=== PATIENT | male | born 1940 | race Hispanic/Latino ===

== ENCOUNTER 2017-06-11 16:12 | Inpatient (IN) | payer MEDICARE, OTHER ==
[2017-06-11 16:53] VITALS: BMI 22.7
--- NOTE | 2017-06-11 16:54 | ED PDOC ---
Arrival/HPI - General Historian: Patient, Family (daughter) <Ashwin Harley - Last Filed: 06/11/17 19:04> <Neville Wright - Last Filed: 06/11/17 19:27> - General Time Seen by Provider: 06/11/17 16:14 - History of Present Illness Narrative History of Present Illness (Text): 06/11/17 16:46 Patient is a 77 year old male with a past medical history of glaucoma, hypertension, CVA and pinched nerve in his neck presenting to the emergency room with a complaint of frequent falls. He is accompanied by his daughter who helps him give the history. Patient had neck fusion surgery in 2017 and has been experiencing increased frequent falls ever since. Per the patient's daughter he has been having a worsening shuffling gait leading to more frequent falls. He denies any prodrome prior to falls. He had fallen yesterday and did not tell anyone. He also fell earlier today and landed on his left elbow causing him to bleed. Patient states he thinks he hit his head but he is not sure. He denies loss of consciousness. Daughter states that after his fall today , the patient was unable to stand up and walk. Patient is not sure why he can not walk anymore. He says he is not in any pain at this time. Denies lightheadedness, dizziness, fevers, chills, nausea, vomiting, diarrhea, constipation, chest pain, palpitations, abdominal pain, numbness, tingling, vision changes or headaches. (Ashwin Harley) Past Medical History - Provider Review Nursing Documentation Reviewed: Yes <Ashwin Harley - Last Filed: 06/11/17 19:04> Family/Social History - Physician Review Nursing Documentation Reviewed: Yes Family/Social History: Unknown Family HX <Ashwin Harley - Last Filed: 06/11/17 19:04> Allergies/Home Meds <Ashwin Harley - Last Filed: 06/11/17 19:04> <Neville Wright - Last Filed: 06/11/17 19:27> Allergies/Adverse Reactions: Allergies No Known Allergies Allergy (Verified 06/11/17 16:52) Home Medications: Home Meds Medication Instructions Recorded Confirmed Unobtainable 06/11/17 06/11/17 Review of Systems - Physician Review All systems were reviewed & negative as marked: Yes - Review of Systems Constitutional: Normal. absent: Fatigue, Fevers Eyes: Normal. absent: Vision Changes ENT: Normal. absent: Sore Throat, Rhinorrhea, Sinus Congestion Respiratory: Normal. absent: SOB, Cough, Sputum, Wheezing Cardiovascular: Normal. absent: Chest Pain, Palpitations, Edema, Calf Pain Gastrointestinal: Normal. absent: Abdominal Pain, Constipation, Diarrhea, Nausea, Vomiting Genitourinary Male: Normal. absent: Dysuria Musculoskeletal: Normal. absent: Back Pain Skin: Normal. absent: Rash Neurological: Other (frequent falls). absent: Headache, Dizziness Endocrine: Normal. absent: Diaphoresis Hemo/Lymphatic: Normal Psychiatric: Normal <Ashwin Harley - Last Filed: 06/11/17 19:04> Physical Exam Vital Signs Reviewed: Yes Temperature: Afebrile Blood Pressure: Normal Pulse: Tachycardic Respiratory Rate: Normal Appearance: Positive for: Well-Appearing, Non-Toxic, Comfortable Pain Distress: None Mental Status: No: Alert and Oriented X 3 (Knows self and place but thinks its april 1978) - Systems Exam Head: Present: Tenderness (posterior portion of right side of head), Swelling ( posterior portion of right side of head) Pupils: Present: PERRL Extroacular Muscles: Present: EOMI Conjunctiva: Present: Normal Mouth: Present: Moist Mucous Membranes Nose (External): Present: Atraumatic Nose (Internal): Present: Normal Inspection, No Active Bleeding, Moist Neck: Present: Normal Range of Motion. No: Meningeal Signs, MIDLINE TENDERNESS , Paraspinal Tenderness, JVD, Lymphadenopathy Respiratory/Chest: Present: Clear to Auscultation, Good Air Exchange. No: Respiratory Distress, Accessory Muscle Use Cardiovascular: Present: Regular Rate and Rhythm, Normal S1, S2, Tachycardic. No: Murmurs Abdomen: Present: Normal Bowel Sounds. No: Tenderness, Distention, Peritoneal Signs, Rebound, Guarding Back: Present: Normal Inspection. No: Midline Tenderness, Paraspinal Tenderness , Decubitus Ulcer Upper Extremity: Present: NORMAL PULSES, Tenderness (left elbow), Swelling ( left elbow), Other (abrasion over left elbow, currently bleeding). No: Cyanosis , Edema Lower Extremity: Present: Normal Inspection, NORMAL PULSES. No: Edema, CALF TENDERNESS Neurological: Present: GCS=15, CN II-XII Intact, Speech Normal Skin: Present: Warm, Dry, Abrasion (left elbow). No: Rashes Lymphatic: No: Cervical Adenopathy Psychiatric: Present: Alert, Normal Insight, Normal Concentration. No: Oriented x 3 (oriented to self and place but thinks it is april 1978) <Ashwin Harley - Last Filed: 06/11/17 19:04> Vital Signs Temp Pulse Resp BP Pulse Ox 06/11/17 17:42 102 H 18 121/68 95 06/11/17 16:18 98.3 F 113 H 18 124/73 95 Medical Decision Making Re-evaluation Time: 19:03 Reassessment Condition: Re-examined, Unchanged - Lab Interpretations I have reviewed the lab results: Yes - RAD Interpretation Talent Buyer: Radiologist - EKG Interpretation Interpreted by ED Physician: Yes Type: 12 lead EKG <Ashwin Harley - Last Filed: 06/11/17 19:04> <Neville Wright - Last Filed: 06/11/17 19:27> ED Course and Treatment: 06/11/17 17:[address], Left elbow x ray, labs will re-assess 06/11/17 19:03 Labs - unremarkable Head and C - Spine CT - unremarkable awaiting left elbow x-ray -results, prelim read - no fx Spoke with patient and daughter at bedside. Discussed the want to keep patient overnight for observation due to increasing frequency of falls. They agree. Call placed to Dr. Blackwell, awaiting call back. Patient states he has some shoulder pain, this is baseline pain for him from previous surgery - requesting ibuprofen 600mg, which he takes at home. He states he will refuse anything stronger. (Ashwin Harley) 06/11/17 19:26 Patient has had multiple falls and is at a high fall risk that could cause disability or . I recommend observation for evaluation of ataxia. Case was discussed with Dr. Blackwell who agrees to placed on medsurg for ataxia in observation. (Neville Wright) - Lab Interpretations Lab Results: 06/11/17 17:30 06/11/17 17:30 Lab Results 06/11/17 17:30: Sodium 139, Potassium 4.3, Chloride 102, Carbon Dioxide 25, Anion Gap 16, BUN 31 H, Creatinine 1.1, Est GFR ( Amer) > 60, Est GFR ( Non-Af Amer) > 60, Random Glucose 94, Calcium 9.7, Magnesium 2.1, Total Bilirubin 0.7, AST 30, ALT 20, Alkaline Phosphatase 91, Total Protein 7.6, Albumin 4.1, Globulin 3.5, Albumin/Globulin Ratio 1.2 06/11/17 17:30: WBC 9.4, RBC 4.00, Hgb 12.7 L, Hct 37.4 L, MCV 93.5, MCH 31.8, MCHC 34.0, RDW 12.8, Plt Count 239, MPV 10.2, Gran % 71.5 H, Lymph % (Auto) 18.2 L, [place] % (Auto) 9.5 H, Eos % (Auto) 0.7 L, Baso % (Auto) 0.1, Gran # 6.73 H, Lymph # (Auto) 1.7, [place] # (Auto) 0.9 H, Eos # (Auto) 0.1, Baso # (Auto) 0.01 - RAD Interpretation Narrative RAD Interpretations (Text): 06/11/17 18:[address] - No acute intracranial abnormalities. No significant findings to account for the clinical presentation. - Brain - No mass effect or edema. Area of old cortical infarction left frontal parietal region. Cortical atrophy, periventricular small vessel disease. Lacune or infarcts identified on the left Cervical Spine CT - No acute fracture or traumatic anterior listhesis. (Ashwin Harley) Radiology Orders: 06/11/17 16:54 HEAD W/O CONTRAST [CT] Stat ELBOW LEFT 3 VIEWS ROUTINE [RAD] Stat 06/11/17 16:56 CERVICAL SPINE W/O CONTRAST [CT] Stat - EKG Interpretation EKG Interpretation (Text): 06/11/17 17:08 Sinus Tachycardia @ 104bpm, normal axis, LVH - no previous EKG to compare to ( Ashwin Harley) - Medication Orders Current Medication Orders: Discontinued Medications Ibuprofen (Motrin Tab) 600 mg PO STAT STA Stop: 06/11/17 18:44 Last Admin: 06/11/17 18:48 Dose: 600 mg MAR Pain/Vitals Document 06/11/17 18:48 MS (Rec: 06/11/17 18:50 MS [id number]) Pain Reassessment Is This A Pain ReAssessment? No Sleep Is patient sleeping during reassessment? No Presence of Pain Presence of Pain Yes Pain Scale Used Pain Scale Used Numeric Location Pain Location Body Site Elbow Intensity 5 Scale Used Numeric Pain Behavior Grasping Site Facial Grimacing Disposition/Present on Arrival - Present on Arrival Any Indicators Present on Arrival: No History of DVT/PE: No History of Uncontrolled Diabetes: No Urinary Catheter: No History of Decub. Ulcer: No - Disposition Have Diagnosis and Disposition been Completed?: Yes Disposition Time: 19:03 <Ashwin Harley - Last Filed: 06/11/17 19:04> - Disposition Patient Plan: Observation <Neville Wright - Last Filed: 06/11/17 19:27> - Disposition Diagnosis: Ataxia Patient Problems: Current Active Problems Problem Status Onset Ataxia Acute Condition: GUARDED Referrals: Zafar Blackwell MD [Primary Care Provider] - Follow up with primary
[2017-06-11 17:47] LABS: BASO # 0.01 K/mm3 (0.0-2.0); BASO % 0.1 % (0.0-3.0); EOS # 0.1 (0.0-0.7); EOS % 0.7 % (1.5-5.0); GRAN # 6.73 (1.4-6.5); GRAN % 71.5 % (50.0-68.0); HEMOGLOBIN 12.7 g/dL (14.0-18.0); LYMPH # 1.7 (1.2-3.4); LYMPH % 18.2 % (22.0-35.0); MEAN CELL VOLUME 93.5 fl (80.0-105.0); MEAN CORPUSCULAR HEMOGLOBIN 31.8 pg (25.0-35.0); MEAN PLATELET VOLUME 10.2 fl (7.0-11.0); MONO # 0.9 (0.1-0.6); MONO % 9.5 % (1.0-6.0); RED CELL DISTRIBUTION WIDTH 12.8 % (11.5-14.5); WHITE BLOOD COUNT 9.4 10^3/ul (4.5-11.0)
[2017-06-11 17:58] LABS: BLOOD UREA NITROGEN 31 mg/dL (7-21); GFR AFRICAN-AMERICAN > 60; GFR NON-AFRICAN AMERICAN > 60
[2017-06-11 17:59] LABS: ALB/GLOB RATIO 1.2 (1.1-1.8); ALBUMIN 4.1 g/dL (3.0-4.8); ALT/SGPT 20 U/L (7-56); AST/SGOT 30 U/L (17-59); CALCIUM 9.7 mg/dL (8.4-10.5)
--- NOTE | 2017-06-11 18:09 | CT ---
PROCEDURE: CT HEAD WITHOUT CONTRAST. HISTORY: s/p fall, unsteady gait COMPARISON: None available. TECHNIQUE: Axial computed tomography images were obtained through the head/brain without intravenous contrast. Coronal and sagittal reconstructed images. Radiation dose: Total exam DLP = 886.40 mGy-cm. This CT exam was performed using one or more of the following dose reduction techniques: Automated exposure control, adjustment of the mA and/or kV according to patient size, and/or use of iterative reconstruction technique. FINDINGS: HEMORRHAGE: No intracranial hemorrhage. BRAIN: No mass effect or edema. Area of old cortical infarction left frontal parietal region. Cortical atrophy, periventricular small vessel disease. Lacune or infarcts identified on the left VENTRICLES: Unremarkable. No hydrocephalus. CALVARIUM: Unremarkable. PARANASAL SINUSES: Unremarkable as visualized. No significant inflammatory changes. MASTOID AIR CELLS: Unremarkable as visualized. No inflammatory changes. OTHER FINDINGS: None. IMPRESSION: No acute intracranial abnormalities. No significant findings to account for the clinical presentation.
--- NOTE | 2017-06-11 18:23 | CT ---
PROCEDURE: CT Cervical Spine without contrast HISTORY: s/p fall COMPARISON: None available. TECHNIQUE: Axial computed tomography images were obtained of the cervical spine without the use of intravenous contrast. Coronal and sagittal reformatted images were created and reviewed. Radiation dose: Total exam DLP = 563.78 mGy-cm. This CT exam was performed using one or more of the following dose reduction techniques: Automated exposure control, adjustment of the mA and/or kV according to patient size, and/or use of iterative reconstruction technique. FINDINGS: VERTEBRAE: There is straightening of the cervical spine with loss of normal cervical lordosis. There is no acute fracture or traumatic anterior listhesis. There is normal alignment of the cervical vertebral bodies. Status post extensive posterior spinal decompression and fixation with transpedicular screws and interconnecting rods. There is diffuse bone demineralization. The craniocervical junction is normal. The atlantoaxial joint is normal. DISCS/SPINAL CANAL/NEURAL FORAMINA: There is advanced multilevel degenerative disc disease with anterior osteophytes, reduced disc heights and multilevel facet arthropathy with variable degree of neural foraminal narrowing. PARASPINAL SOFT TISSUES: Unremarkable. OTHER FINDINGS: No apical pneumothorax. There is extensive left apical pleural parenchymal scarring and mild right apical pleural parenchymal scarring. IMPRESSION: No acute fracture or traumatic anterior listhesis.
--- NOTE | 2017-06-11 22:17 | CARD ---
APPROVED REPORT EKG Measurement Heart [id number] <Conclusion> Sinus tachycardia Otherwise normal ECG
--- NOTE | 2017-06-12 07:01 | RAD ---
PROCEDURE: Radiographs of the left elbow. HISTORY: s/p fall COMPARISON: No prior. FINDINGS: BONES: No acute fracture. Prominent trabecular pattern distal left humerus. Cortical thickening suggests Paget disease. JOINTS: Degenerative changes at the junction of the olecranon and medial epicondyles. SOFT TISSUES: Normal. JOINT EFFUSION: None. OTHER FINDINGS: None IMPRESSION: No acute findings related to/accounting for the clinical presentation.
[2017-06-12 07:30] LABS: BASO # 0.01 K/mm3 (0.0-2.0); BASO % 0.2 % (0.0-3.0); EOS # 0.2 (0.0-0.7); EOS % 3.5 % (1.5-5.0); GRAN # 3.54 (1.4-6.5); GRAN % 56.5 % (50.0-68.0); LYMPH # 1.8 (1.2-3.4); LYMPH % 29.3 % (22.0-35.0); MEAN CELL VOLUME 92.8 fl (80.0-105.0); MEAN CORPUSCULAR HGB CONC 33.4 g/dl (31.0-37.0); MEAN PLATELET VOLUME 10.1 fl (7.0-11.0); MONO # 0.7 (0.1-0.6); MONO % 10.5 % (1.0-6.0); RBC 3.87 10^6/uL (3.5-6.1); RED CELL DISTRIBUTION WIDTH 12.7 % (11.5-14.5); WHITE BLOOD COUNT 6.3 10^3/ul (4.5-11.0)
--- NOTE | 2017-06-12 10:48 | CT ---
PROCEDURE: CT Chest without contrast HISTORY: tobac cough COMPARISON: None. TECHNIQUE: Contiguous axial images were obtained through the chest without intravenous contrast enhancement. Sagittal and coronal reconstructions were performed. Radiation dose (DLP): 202 mGy-cm. This CT exam was performed using one or more of the following dose reduction techniques: Automated exposure control, adjustment of the mA and/or kV according to patient size, and/or use of iterative reconstruction technique. FINDINGS: LUNGS: There is a 3.8 cm mass in the left lung apex that extends into the supraclavicular fossa. This is suspicious for neoplastic lesion. There is no obvious bone destruction. The lesion surrounds the left subclavian artery. There is also an area of parenchymal scarring in the posterior aspect of the right lung apex. MEDIASTINUM: Unremarkable thoracic aorta. No aneurysm. Normal sized heart. Main pulmonary artery unremarkable. No vascular congestion. No lymphadenopathy. PLEURA: No pleural fluid. No pneumothorax. BONES: No fracture. No destructive lesion. UPPER ABDOMEN: Grossly unremarkable. OTHER FINDINGS: None. IMPRESSION: There is a 3.8 cm mass in the left lung apex that extends into the supraclavicular fossa. This is suspicious for neoplastic lesion. There is no obvious bone destruction. The lesion surrounds the left subclavian artery.
--- NOTE | 2017-06-12 11:33 | MRI ---
PROCEDURE: MRI BRAIN WITHOUT CONTRAST HISTORY: falls/memory loss COMPARISON: None. TECHNIQUE: Multiplanar, multisequence MR images of the brain were obtained without intravenous contrast enhancement. FINDINGS: HEMORRHAGE: None DWI: No evidence of an acute or early subacute infarction. BRAIN PARENCHYMA: No mass effect or edema. Severe chronic microvascular changes are seen. There is more focal chronic encephalomalacia in the left frontal white matter. There are no acute intracranial findings. VENTRICLES: Unremarkable. No hydrocephalus. CRANIUM: Unremarkable. ORBITS: Grossly unremarkable. PARANASAL SINUSES/MASTOIDS: Clear VASCULAR SYSTEM: Skull base flow voids intact. OTHER FINDINGS: None. IMPRESSION: No acute intracranial findings
--- NOTE | 2017-06-12 17:11 | CARD ---
APPROVED REPORT EXAM: Two-dimensional and M-mode echocardiogram with Doppler and color Doppler. INDICATION Syncope LVFX 2D DIMENSIONS IVSd1.2 (0.7-1.1cm)LVDd4.6 (3.9-5.9cm) LVOT Diameter2.3 (1.8-2.4cm)PWd1.4 (0.7-1.1cm) LVDs3.4 (2.5-4.0cm)FS (%) 25.7 % LVEF (%)45.0 (>50%) M-Mode DIMENSIONS Aortic Root3.50 (2.2-3.7cm)Aortic Cusp Exc.0.90 (1.5-2.0cm) Aortic Valve AoV Peak Gmvrhmre908.0cm/sAoV VTI58.9cmAO Peak GR.35mmHg LVOT Peak Usqfqrit077.0cm/sLVOT VTI20.80cmAO Mean GR.22mmHg BRENDA (VMAX)1.50mq3DWF (VTI)1.40tb7GS P 1/2 Dhmz884jj Mitral Valve E/A ratio0.0 TDI E/Lateral E'0.0E/Medial E'0.0 Pulmonary Valve PV Peak Mxcurkae525.0cm/sPV Peak Grad.4mmHg Tricuspid Valve TR Peak Ydylsyuw647rg/sRAP TUDSHHGO54lrKwES Peak Gr.13mmHg UEPI05tfGm LEFT VENTRICLE The left ventricle is normal size. There is normal left ventricular wall thickness. The systolic function is mildly impaired. Transmitral Doppler flow pattern is Grade I-abnormal relaxation pattern. RIGHT VENTRICLE The right ventricle is normal size. There is normal right ventricular wall thickness. The right ventricular systolic function is normal. ATRIA The left atrium size is normal. The right atrium size is normal. AORTIC VALVE The aortic valve is mildly to moderately calcified. There is moderate to severe aortic regurgitation. There is moderate valvular aortic stenosis. MITRAL VALVE The mitral valve is mildly thickened. Mitral regurgitation is trace. TRICUSPID VALVE The tricuspid valve is normal in structure. There is no tricuspid valve regurgitation noted. GREAT VESSELS The aortic root is normal in size. PERICARDIAL EFFUSION There is no pericardial effusion. <Conclusion> The left ventricle is normal size. There is normal left ventricular wall thickness. The systolic function is mildly impaired. Transmitral Doppler flow pattern is Grade I-abnormal relaxation pattern. There is moderate to severe aortic regurgitation. There is moderate valvular aortic stenosis.
--- NOTE | 2017-06-12 20:28 | HP ---
HISTORY OF PRESENT ILLNESS: A 77-year-old white male with history of increased falls over the last several weeks, multiple falls, hitting his head, hitting his elbow, repeated falls, came to the emergency room, unsteady gait, shuffling gait recently, complaining of weakness in his legs, history of cervical fusion, CVA in the past, positive smoker, history of hypertension and also memory loss. PHYSICAL EXAMINATION: GENERAL: The patient is seen in his room. Awake, alert, and oriented to time and person, but not to date. CHEST: Clear to auscultation and percussion. HEART: Regular sinus rhythm. No murmurs. EXTREMITIES: Without cyanosis, clubbing, or edema. There is normal strength in the upper and lower extremities. He he does have a shuffling, hesitant gait. His Romberg is negative. His Babinski are downgoing. His reflexes are 2+ and equal bilaterally. ABDOMEN: Soft. IMPRESSION: A 77-year-old white male presenting with multiple falls, history of cerebrovascular accident, still continues to smoke, history of cervical fusion, new onset of shuffling gait, multiple falls, and memory loss. Rule out Parkinson's, rule out dementia, rule out lumbosacral spine disease, rule out neuropathy. Zafar Blackwell MD
--- NOTE | 2017-06-13 13:20 | PN ---
DATE: 06/13/2017 SUBJECTIVE: A 77-year-old white male, admitted to the hospital with multiple falls, confusion, disorientation, ataxic gait and tremor. The patient was found to have low B12 apical lung mass on CT of the chest. MRI of the brain was normal. He does have some mild to moderate aortic stenosis on echo. B12 was 167. The patient will be given B12 injections. He is being scheduled for a CT-guided biopsy of the lung. He did some physical therapy and occupational therapy. He is able to walk with assistance, but he still has difficulty walking and balancing. He has had multiple falls over the last 2-3 weeks, possibly due to B12 or his possible lung neoplasm. Disposition is unchanged. Plan is to do lung biopsy. Continue B12 injections and physical therapy. Zafar Blackwell MD
--- NOTE | 2017-06-15 08:13 | CON ---
DATE: 06/12/2017 NEUROLOGY CONSULTATION CHIEF COMPLAINT: Frequent falls. HISTORY OF PRESENT ILLNESS: This is a 77-year-old man who is a chronic smoker with history of CVA, history of cervical myelopathy and radiculopathy status post cervical fusion in 2017, who has been experiencing increased falls ever since, and his gait is shuffling leading to frequent falls. He denies any paresthesias in the extremities but does have poor balance. His from my cervical surgery. He had an MRI of the brain which showed no acute intracranial abnormalities, old chronic encephalomalacia and some in the left frontal white matter indicating an old infarct. Currently, he denies any problems at this time. He had a CAT scan of his chest which showed a 3.8 cm mass in the left lung that extends to the supraclavicular fossa, suspicious for neoplastic in origin. He is able to lift up his legs without any difficulty. Sensory exam is slightly decreased to light touch and pinprick up to the calves bilaterally. Decreased vibration in the toes. DTRs are 2+ throughout and brisk at the knees. Coordination, cotxpl-sd-xzos intact, no dysmetria noted. PAST MEDICAL HISTORY: History of hypertension, history of cervical spinal fusion for cervical radiculopathy in 2017. FAMILY HISTORY: Noncontributory. History of glaucoma. ALLERGIES: NO KNOWN DRUG ALLERGIES. SOCIAL HISTORY: Daily smoker. Occasional EtOH use. No illicit drug use. REVIEW OF SYSTEMS: A 14-point review of systems negative except as per the HPI. PHYSICAL EXAMINATION: VITAL SIGNS: Temperature 98, pulse rate of 86, blood pressure 127/74, respiratory rate 20, oxygen saturation 96% on room air. GENERAL: The patient is sitting up in bed, in no acute distress. HEENT: Head: Atraumatic, normocephalic. PERRLA. Extraocular muscles intact. NECK: Supple. No JVD. No adenopathy noted. LUNGS: Clear to auscultation. No adventitious sounds. HEART: S1 and S2. Normal rate and rhythm. No murmurs, rubs, or gallops. ABDOMEN: Soft, nontender, nondistended. Bowel sounds are present. EXTREMITIES: No clubbing, no cyanosis. Peripheral pulses 2+ felt bilaterally. NEUROLOGIC: The patient is alert and oriented to person, place, month, and year. Speech is fluent without any errors. Cranial nerves II through XII are intact. Motor: Moves all extremities equally. Toes downgoing bilaterally. Sensory: Decreased light touch and pinprick up to the calves bilaterally. Decreased vibration of the toes. DTRs are 2+ throughout, brisk at the knees. Coordination: Vxmwwu-op-dmwd intact. No dysmetria noted. Gait is deferred for now. LABORATORY DATA: Sodium is 139, potassium 4.3, chloride 102, carbon dioxide 25, BUN 31, creatinine 1.1, random glucose 94. B12 level 167. ASSESSMENT AND PLAN: This is a 77 -year-old man with history of glaucoma, hypertension, chronic smoker, history of cervical radiculopathy status post cervical spinal fusion in 2017 which resulted in worsening gait where he is having frequent falls, unstable on his balance, gait is slightly spastic, which is seen on examination. He does have low B12 level as well. His frequent falls and poor balance and gait dysfunction are secondary to cervical fusion surgery with history of possible cervical myelopathy, superimposed underlying B12 deficiency causing poor balance. In addition, he has a mass in the left lung apex, could be neoplastic in origin which he could have some underlying paraneoplastic. Proprioception difficulties causing frequent falls as well. Multifactorial in nature. At this time, I recommend: 1. Subacute rehab for PT/OT and gait and balance exercises. 2. B12 replacement with IM injection with 1000 mcg. 3. Oncology evaluation for lung mass. 4. Continue with current present medical management. 5. Advise cessation of smoking. Thank you for this consult. Kiran Strange MD
[2017-06-15] MEDS ORDERED: Midazolam 2 MG/2 ML VIAL ONE (09:42)
[2017-06-15] MEDS ORDERED: Lidocaine 1% Inj (20ml) ONE (09:43)
--- NOTE | 2017-06-15 10:13 | PN ---
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 The patient is complaining only of some chest discomfort and some cough with sputum production. He is on IV antibiotics. He had CT, which showed the mass. He is being scheduled for a CT guided biopsy with Dr. Damian Shine. PHYSICAL EXAMINATION: VITAL SIGNS: Stable. He is afebrile. Blood pressure 139/77. CHEST: Shows some rhonchi and rales bilaterally. ABDOMEN: Benign. EXTREMITIES: No cyanosis or edema. LABORATORY DATA: Unremarkable except for slightly elevated BUN and creatinine of 31 and 1.1. ASSESSMENT: The patient was found to be B12 deficient with a B12 of 167 and he is on replacement. Plan is to biopsy, possible radiation if he is positive for lung cancer. He is on steroids to decrease the swelling and to decrease the chance of possible SVC syndrome. He will be followed post biopsy. Zafar Blackwell MD
[2017-06-15] MEDS ORDERED: Sodium Chloride 0.45% 1,000 ML IV SCH (10:15)
--- NOTE | 2017-06-15 13:24 | RAD ---
HISTORY: lt lung bx COMPARISON: No prior. FINDINGS: LUNGS: No active pulmonary disease. PLEURA: No significant pleural effusion identified, no pneumothorax apparent. CARDIOVASCULAR: Normal. OSSEOUS STRUCTURES: No significant abnormalities. VISUALIZED UPPER ABDOMEN: Normal. OTHER FINDINGS: None. IMPRESSION: No pneumothorax
--- NOTE | 2017-06-15 14:04 | CARD ---
APPROVED REPORT Reason for Test: FALLS Hookup date: 2017-06-12 Scan date: 2017-06-15 Recording time: 23 HR 59 MIN Heart Rate Data Total Beats: [id number] Min HR: 57 BPM at 6:14AM Avg HR: 89 BPM Max HR: 150 BPM at 1:26PM Ventricular Ectopy Total VE Beats: 890 (0.7%) Single/Interp PVC: 304/3 Single/Late VE's: 570/4 Bi/Trigeminy: 6/3 Beats Supraventricular Ectopy Total VE Beats: 414 (0.3%) Drop/Late: 0/408 Longest R-R: 1.5 sec at 6:19 AM Single PAC's: 6 Conclusion SINUS RHYTHM / SINUS BRADYCARDIA / SINUS TACHYCARDIA MINIMUM HR 57 BPM MAXIMUM HR 150 BPM ISOLATED APC'S RARE VPC'S, ISOLATED INTERPOLATED, BIGEMINY, TRIGEMINY DIARY WAS NOT AVAILABLE.
--- NOTE | 2017-06-15 17:16 | CT ---
PROCEDURE: CT guided left apical lung biopsy. HISTORY: 4 cm left apical lung mass. Evaluate for malignancy PHYSICIAN(S): Damian Shine MD. TECHNIQUE: The relative risks and indications of the procedure were explained to the patient and consent obtained. The patient was placed supine on the CT scanner and preliminary images through the lung apices obtained. Conscious sedation and monitoring were provided throughout the procedure by a nurse. There is a 4 cm infiltrative mass at the left apex which appears to involve the anterior chest wall.. A left anterior oblique approach was selected and the area prepped and draped in the usual sterile fashion. 1% Xylocaine was used to anesthetize the skin and soft tissues. A 19 gauge guiding needle was advanced into the 4 cm left apical lung mass. Its position was confirmed with CT. Using coaxial technique, multiple core biopsies were obtained. The postprocedure images show no evidence of large pneumothorax or hemorrhage.. IMPRESSION: 1. CT-guided left apical lung biopsy as described above.
[2017-06-15] MEDS: Oxycodone/Acetaminophen 5/325 mg Tab PO PRN (19:01)
--- NOTE | 2017-06-15 23:20 | CP.PCM.CON ---
History of Present Illness - History of Present Illness History of Present Illness: Mr. Galicia is a 77 year old male recently found to have left upper lobe mass around 4 cm. He developed ataxia and frequent falls approximately 1 month ago. MRI of head is negative for metastatic lesions. He lost few pounds of weight. He is a heavy smoker. He worked in [employer]. he was deployed in [place] for few days only. 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 No history of exposure to agent [place]. CT guided biopsy of lung mass done today. No chest pain. Review of Systems - Constitutional Constitutional: As Per HPI - EENT Eyes: absent: As Per HPI, Blind Spots, Blurred Vision, Change in Vision, Decreased Night Vision, Diplopia, Discharge, Dry Eye, Exophthalmos, Floaters, Irritation, Itchy Eyes, Loss of Peripheral Vision, Pain, Photophobia, Requires Corrective Lenses, Sees Flashes, Spots in Vision, Tunnel Vision, Other Visual Disturbances, Loss of Vision, Other Ears: absent: As Per HPI, Decreased Hearing, Ear Discharge, Ear Pain, Tinnitus, Abnormal Hearing, Disequilibrium, Dizziness, Other Nose/Mouth/Throat: absent: As Per HPI, Epistaxis, Nasal Congestion, Nasal Discharge, Nasal Obstruction, Nasal Trauma, Nose Pain, Post Nasal Drip, Sinus Pain, Sinus Pressure, Bleeding Gums, Change in Voice, Dental Pain, Dry Mouth, Dysphagia, Halitosis, Hoarsness, Lip Swelling, Mouth Lesions, Mouth Pain, Odynophagia, Sore Throat, Throat Swelling, Tongue Swelling, Facial Pain, Neck Pain, Neck Mass, Other - Cardiovascular Cardiovascular: absent: As Per HPI, Acrocyanosis, Chest Pain, Chest Pain at Rest , Chest Pain with Activity, Claudication, Diaphoresis, Dyspnea, Dyspnea on Exertion, Edema, Irregular Heart Rhythm, Pain Radiating to Arm/Neck/Jaw, Leg Edema, Leg Ulcers, Lightheadedness, Orthopnea, Palpitations, Paroxysmal Nocturnal Dyspnea, Pedal Edema, Radiating Pain, Rapid Heart Rate, Slow Heart Rate, Syncope, Other - Respiratory Respiratory: As Per HPI - Gastrointestinal Gastrointestinal: absent: As Per HPI, Abdominal Pain, Belching, Bloating, Change in Bowel Habits, Change in Stool Character, Coffee Ground Emesis, Constipation, Cramping, Diarrhea, Dyspepsia, Dysphagia, Early Satiety, Excessive Flatus, Fecal Incontinence, Heartburn, Hematemesis, Hematochezia, Loose Stools, Melena, Nausea, Odynophagia, Temesmus, Vomiting, Other - Genitourinary Genitourinary: absent: As Per HPI, Change in Urinary Stream, Difficulty Urinating, Dysuria, Flank Pain, Hematuria, Pyuria, Nocturia, Urinary Incontinence, Urinary Frequency, Urinary Hesitance, Urinary Urgency, Voiding Freq/Small Amts, Freq UTI, Hx Renal/Bladder Calculi, Hx /Renal Surgery, Bladder Distension, Other - Musculoskeletal Musculoskeletal: As Per HPI - Integumentary Integumentary: absent: As Per HPI, Acne, Alopecia, Bleeding Lesions, Change in Hair, Change in Nails, Change in Pigmentation, Changing Lesions, Dry Skin, Erythema, Furuncle, Hirsutism, Lesions, New Lesions, Non-Healing Lesions, Photosensitivity, Pruritus, Rash, Skin Pain, Skin Ulcer, Sores, Striae, Swelling , Unusual Bruising, Wounds, Jaundice, Other - Neurological Neurological: As Per HPI, Abnormal Gait - Endocrine Endocrine: absent: As Per HPI, Change in Body Appearance, Change in Libido, Cold Intolorance, Deepening of Voice, Excessive Sweating, Fatigue, Flushing, Heat Intolorance, Increase in Ring/Shoe/Hat Size, Palpitations, Polydipsia, Polyphagia, Polyuria, Other - Hematologic/Lymphatic Hematologic: absent: As Per HPI, Easy Bleeding, Easy Bruising, Lymphadenopathy, Other Past Patient History - Infectious Disease Hx of Infectious Diseases: None - Past Social History Smoking Status: Heavy Smoker > 10 Cigarettes Daily - CARDIAC Hx Hypertension: Yes - NEUROLOGICAL HX Cerebrovascular Accident: Yes - HEENT Hx Cataracts: Yes (Removed OU) - MUSCULOSKELETAL/RHEUMATOLOGICAL Hx Falls: Yes - PSYCHIATRIC Hx Substance Use: No - SURGICAL HISTORY Hx Surgeries: Yes Hx Orthopedic Surgery: Yes (Right Shldr x2, Neck fusion) Meds Allergies/Adverse Reactions: Allergies Allergy/AdvReac Type Severity Reaction Status Date / Time No Known Allergies Allergy Verified 06/11/17 16:52 - Medications Medications: Current Medications Acetaminophen (Tylenol 325mg Tab) 650 mg PO Q4 PRN PRN Reason: Pain, Mild (1-3) Amitriptyline HCl (Elavil) 25 mg PO HS DAVID Last Admin: 06/15/17 21:09 Dose: 25 mg Amlodipine Besylate (Norvasc) 5 mg PO DAILY [facility] Last Admin: 06/15/17 11:37 Dose: 5 mg Cyanocobalamin (Vitamin B12 1000 Mcg/Ml Inj) 1,000 mcg IM DAILY [facility] Last Admin: 06/15/17 11:36 Dose: 1,000 mcg Methylprednisolone (Solu-Medrol) 60 mg IVP Q12 [facility] Last Admin: 06/15/17 21:09 Dose: 60 mg Ondansetron HCl (Zofran Inj) 4 mg IVP Q6H PRN PRN Reason: Nausea/Vomiting Oxycodone/Acetaminophen (Percocet 5/325 Mg Tab) 1 tab PO Q6H PRN PRN Reason: Pain, moderate (4-7) Stop: 06/18/17 18:50 Last Admin: 06/15/17 19:01 Dose: 1 tab Physical Exam - Constitutional Appears: Chronically Ill - Head Exam Head Exam: ATRAUMATIC, NORMAL INSPECTION, NORMOCEPHALIC - Eye Exam Eye Exam: Normal appearance - ENT Exam ENT Exam: Mucous Membranes Dry, Mucous Membranes Moist - Neck Exam Neck exam: Positive for: Normal Inspection - Respiratory Exam Respiratory Exam: Clear to Auscultation Bilateral, NORMAL BREATHING PATTERN - Cardiovascular Exam Cardiovascular Exam: REGULAR RHYTHM, +S1, +S2 - GI/Abdominal Exam GI & Abdominal Exam: Normal Bowel Sounds, Soft - Extremities Exam Extremities exam: Positive for: normal inspection - Back Exam Back exam: NORMAL INSPECTION - Neurological Exam Neurological exam: Abnormal Gait, Alert, Oriented x3 - Skin Skin Exam: Normal Color, Warm Results - Vital Signs Recent Vital Signs: Last Vital Signs Temp 98.5 F 06/15/17 14:00 Pulse 100 H 06/15/17 14:00 Resp 20 06/15/17 14:00 BP 160/80 H 06/15/17 14:00 Pulse Ox 95 06/15/17 14:00 - Labs Result Diagrams: 06/12/17 07:00 06/11/17 17:30 Assessment & Plan - Assessment and Plan (Free Text) Assessment: 1. Left upper lobe lung mass 2. Ataxia 3. 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 B12 deficiency 5. COPD Plan : 1. left upper lobe mass 4.8 cm . Biopsy done today. very likely malignant. CT abdomen pelvis to r/o metastatic lesions. MRI of brain negative for mets. CT -PET upon discharge from hospital. 2. 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 Cerebellar symptoms leading to ataxia can precede the diagnosis of malignancy. Syndromes are due to Onconeural antibodies, common one is anti HU antibody. Found in 25 % of the [employer] paraneoplastic syndrome. Anti HU antibody ordered. Other less common antibodies are present in 1 % only. Symptoms can resolve with treatment of malignancy. 3. B12 deficiency : B12 1 mg daily. Folic acid 1 mg daily. Discussed with patient , daughter and Son at bedside. Indicated the likely possibility of lung malignancy. answered all their question to their satisfaction. Thank you Dr. Blackwell for allowing us to participate in his care. Will continue to follow.
[2017-06-16] MEDS: Oxycodone/Acetaminophen 5/325 mg Tab PO PRN
[2017-06-16] MEDS ORDERED: Barium Sulfate Susp 2.1% w/v, 2.0% w/w 450 mL Bottle PO ONE (06:41)
[2017-06-16 08:28] VITALS: RESP 20
[2017-06-16] MEDS ORDERED: Iohexol 350 MG/100 ML VIAL ONE (09:58)
--- NOTE | 2017-06-16 10:57 | CT ---
PROCEDURE: CT Abdomen and Pelvis with contrast HISTORY: r/o mets COMPARISON: None. TECHNIQUE: Contrast dose: 100 cc of Omni 350 Radiation dose: Total exam DLP = 283 mGy-cm. This CT exam was performed using one or more of the following dose reduction techniques: Automated exposure control, adjustment of the mA and/or kV according to patient size, and/or use of iterative reconstruction technique. FINDINGS: LOWER THORAX: Unremarkable. LIVER: Unremarkable. No gross lesion or ductal dilatation. GALLBLADDER AND BILE DUCTS: Unremarkable. PANCREAS: Unremarkable. No gross lesion or ductal dilatation. SPLEEN: Unremarkable. ADRENALS: Unremarkable. No mass. KIDNEYS AND URETERS: Unremarkable. No hydronephrosis. No solid mass. There is a 3 mm stone in the upper pole of the left kidney. VASCULATURE: There is mild dilatation of the infrarenal aorta measuring 32 mm. BOWEL: Unremarkable. No obstruction. No gross mural thickening. There is mild diverticulosis of the sigmoid colon APPENDIX: Normal appendix. PERITONEUM: Unremarkable. No free fluid. No free air. LYMPH NODES: Unremarkable. No enlarged lymph nodes. BLADDER: Unremarkable. REPRODUCTIVE: Unremarkable. BONES: No acute fracture. OTHER FINDINGS: None. IMPRESSION: No acute findings. No evidence of metastatic disease
[2017-06-16 14:03] VITALS: BP 177/93; PULSE 104; TEMP 97.8; O2SAT 100
--- NOTE | 2017-06-16 14:49 | PN ---
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 The patient was seen in consultation of . The patient is going for a CT of the abdomen and pelvis today to rule out disease. Biopsy is pending. Plan is to continue physical therapy and possible TCU evaluation for gait training. Zafar Blackwell MD
[2017-06-16] MEDS ORDERED: IMMUNE GLOBULIN IV ONE (18:12)
[2017-06-16] MEDS ORDERED: OCTAGAM IV ONE (18:12)
== END 2017-06-16 18:02 | DRG 181 ==
LOC: ED 16:12 → ERH 19:25 → 5RSO 22:33 → OBSVTOIN 06-12 15:20
PROVIDERS: ADMIT Internal Medicine; ATTEND Internal Medicine
PROC: 0BBL3ZX Excision of Left Lung, Percutaneous Approach, Diagnostic (ICD-10-PCS; principal; 2017-06-15 09:30)
DX: C34.12 Malignant neoplasm of upper lobe, left bronchus or lung (principal); G95.89 Other specified diseases of spinal cord; R26.0 Ataxic gait; I10 Essential (primary) hypertension; E53.8 Deficiency of other specified B group vitamins; I35.0 Nonrheumatic aortic (valve) stenosis; J44.9 Chronic obstructive pulmonary disease, unspecified; M54.12 Radiculopathy, cervical region; H40.9 Unspecified glaucoma; F17.200 Nicotine dependence, unspecified, uncomplicated; R29.6 Repeated falls; R26.2 Difficulty in walking, not elsewhere classified; R53.1 Weakness; R25.1 Tremor, unspecified; Z98.1 Arthrodesis status; Z86.73 Personal history of transient ischemic attack (TIA), and cerebral infarction without residual deficits; Z91.81 History of falling

== ENCOUNTER 2017-06-16 18:06 | Inpatient (IN) | payer OTHER ==
[2017-06-16 18:09] VITALS: BMI 20.9
[2017-06-16] MEDS: Oxycodone/Acetaminophen 5/325 mg Tab PO PRN (19:42)
--- NOTE | 2017-06-16 19:42 | CON ---
DATE: 06/16/2017 NEUROLOGY CONSULTATION CHIEF COMPLAINT: Ataxia. HISTORY OF PRESENT ILLNESS: This is a patient who was seen on the medical site. He is a 77-year-old man with past medical history of glaucoma, hypertension, chronic smoker, history of cervical radiculopathy status post cervical spinal fusion in 2017 which resulted in worsening gait where he had frequent falls, unstable on his balance. His gait was slightly spastic, which was seen on exam. He had low B12 levels as well for which he was given daily B12 injections and had an MRI of the brain, which showed no acute intracranial abnormality, found to have a left upper lobe lung mass of 4.8 cm, status post biopsy. MRI of brain is negative for mets. Oncology is on board, notes reviewed. He is currently in [facility] for underlying rehabilitation. His sensory exam shows decreased light touch and pinprick up to the calves bilaterally, decreased vibration of the toes, no dysmetria on [id number]. PAST MEDICAL HISTORY: Hypertension, history of cervical spinal fusion for cervical radiculopathy in 2017. FAMILY HISTORY: Noncontributory. History of glaucoma. ALLERGIES: NO KNOWN DRUG ALLERGIES. SOCIAL HISTORY: Daily smoker. Occasional EtOH use. No illicit drug use. REVIEW OF SYSTEMS: Fourteen-point review of systems negative except as per the HPI. PHYSICAL EXAMINATION: VITAL SIGNS: Temperature 97.8, pulse rate tachycardic of 100, blood pressure 177/92, respiratory rate of 20, oxygen saturation 100% by room air. GENERAL: Patient is sitting up in bed, in no acute distress. HEENT: Head atraumatic, normocephalic. PERRLA. Extraocular muscles intact. NECK: Supple. No JVD. No adenopathy noted. LUNGS: Clear to auscultation. No adventitious sounds. HEART: S1 and S2. Normal rate and rhythm. No murmurs, rubs, or gallops. ABDOMEN: Soft, nontender, nondistended. Bowel sounds are present. EXTREMITIES: No clubbing, no cyanosis. Peripheral pulses 2+ felt bilaterally. NEUROLOGIC: Patient is alert and oriented to person, place, month, and year. Speech is fluent without any errors. Cranial nerves II through XII are intact. Motor: Moves all extremities equally. No pronator drift seen. Toes are downgoing bilaterally. Sensory: Decreased light touch and pinprick up to the calves bilaterally. Decreased vibration of the toes. DTRs are 2+ throughout, brisk at the knees. Coordination: [id number] intact. No dysmetria noted. Gait is deferred for now. LABORATORY DATA: No new labs on today. ASSESSMENT AND PLAN: This is a 77-year-old man with history of glaucoma, hypertension, chronic smoker, history of cervical radiculopathy status post cervical spinal fusion in 2017 with resultant worsening gait where he had frequent falls, unstable on his balance. Gait was slightly spastic, which was seen on exam. He was also found to have low B12 levels which has been replaced with B12 injections. Found to have left upper lobe mass of 4.8 cm, biopsy is done, very likely malignant. He is currently in [facility] for rehabilitation of gait, muscle strengthening, and balance. 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 At this time, we would recommend: 1. PT, OT for gait, balance, and muscle strengthening exercises. 2. Continue with B12 replacement 1000 mcg IM injection daily. 3. Follow up with oncologist recommendations in regards to his left upper lung mass and should have paraneoplastic panel worked up and anti-Hu antibody has been ordered. 4. Monitor his B12 level and for his B12 deficiency, he should have B12 at least 1 mg daily and folic acid 1 mg daily. 5. Continue with current present medical management. Thank you for this consult. Kiran Strange MD
[2017-06-16] MEDS ORDERED: Pneumococcal 23-Valent Vaccine IM ONE (23:51)
[2017-06-17] MEDS: Oxycodone/Acetaminophen 5/325 mg Tab PO PRN ×2 (08:26→21:47)
--- NOTE | 2017-06-17 13:07 | RAD ---
PROCEDURE: Radiographs of the Left Shoulder HISTORY: r/o dislocation COMPARISON: No prior. FINDINGS: BONES: Normal. No fracture. JOINTS: There is a left shoulder prosthesis. There is satisfactory alignment. There is no dislocation or loosening SOFT TISSUES: Normal. OTHER FINDINGS: None. IMPRESSION: There is a left shoulder prosthesis. There is satisfactory alignment. There is no dislocation or loosening
--- NOTE | 2017-06-17 23:18 | CP.PCM.CON ---
History of Present Illness - History of Present Illness History of Present Illness: patient with left upper lobe mass, CT guided biopsy showed adenocarcinoma. CT abdomen,pelvis, MRI brain negative for mets. Ataxia for one month. B12 deficiency, was started on B12 IM. Review of Systems - Constitutional Constitutional: As Per HPI - EENT Eyes: absent: As Per HPI, Blind Spots, Blurred Vision, Change in Vision, Decreased Night Vision, Diplopia, Discharge, Dry Eye, Exophthalmos, Floaters, Irritation, Itchy Eyes, Loss of Peripheral Vision, Pain, Photophobia, Requires Corrective Lenses, Sees Flashes, Spots in Vision, Tunnel Vision, Other Visual Disturbances, Loss of Vision, Other Ears: absent: As Per HPI, Decreased Hearing, Ear Discharge, Ear Pain, Tinnitus, Abnormal Hearing, Disequilibrium, Dizziness, Other Nose/Mouth/Throat: absent: As Per HPI, Epistaxis, Nasal Congestion, Nasal Discharge, Nasal Obstruction, Nasal Trauma, Nose Pain, Post Nasal Drip, Sinus Pain, Sinus Pressure, Bleeding Gums, Change in Voice, Dental Pain, Dry Mouth, Dysphagia, Halitosis, Hoarsness, Lip Swelling, Mouth Lesions, Mouth Pain, Odynophagia, Sore Throat, Throat Swelling, Tongue Swelling, Facial Pain, Neck Pain, Neck Mass, Other - Cardiovascular Cardiovascular: absent: As Per HPI, Acrocyanosis, Chest Pain, Chest Pain at Rest , Chest Pain with Activity, Claudication, Diaphoresis, Dyspnea, Dyspnea on Exertion, Edema, Irregular Heart Rhythm, Pain Radiating to Arm/Neck/Jaw, Leg Edema, Leg Ulcers, Lightheadedness, Orthopnea, Palpitations, Paroxysmal Nocturnal Dyspnea, Pedal Edema, Radiating Pain, Rapid Heart Rate, Slow Heart Rate, Syncope, Other - Respiratory Respiratory: As Per HPI - Gastrointestinal Gastrointestinal: absent: As Per HPI, Abdominal Pain, Belching, Bloating, Change in Bowel Habits, Change in Stool Character, Coffee Ground Emesis, Constipation, Cramping, Diarrhea, Dyspepsia, Dysphagia, Early Satiety, Excessive Flatus, Fecal Incontinence, Heartburn, Hematemesis, Hematochezia, Loose Stools, Melena, Nausea, Odynophagia, Temesmus, Vomiting, Other - Musculoskeletal Musculoskeletal: As Per HPI - Integumentary Integumentary: absent: As Per HPI, Acne, Alopecia, Bleeding Lesions, Change in Hair, Change in Nails, Change in Pigmentation, Changing Lesions, Dry Skin, Erythema, Furuncle, Hirsutism, Lesions, New Lesions, Non-Healing Lesions, Photosensitivity, Pruritus, Rash, Skin Pain, Skin Ulcer, Sores, Striae, Swelling , Unusual Bruising, Wounds, Jaundice, Other - Neurological Neurological: As Per HPI - Endocrine Endocrine: absent: As Per HPI, Change in Body Appearance, Change in Libido, Cold Intolorance, Deepening of Voice, Excessive Sweating, Fatigue, Flushing, Heat Intolorance, Increase in Ring/Shoe/Hat Size, Palpitations, Polydipsia, Polyphagia, Polyuria, Other - Hematologic/Lymphatic Hematologic: As Per HPI Past Patient History - Infectious Disease Hx of Infectious Diseases: None - Past Social History Smoking Status: Heavy Smoker > 10 Cigarettes Daily - CARDIAC Hx Hypertension: Yes - NEUROLOGICAL HX Cerebrovascular Accident: Yes - HEENT Hx Cataracts: Yes (Removed OU) - MUSCULOSKELETAL/RHEUMATOLOGICAL Hx Falls: Yes - GASTROINTESTINAL Hx Gastrointestinal Disorders: No - GENITOURINARY/GYNECOLOGICAL Hx Genitourinary Disorders: No Hx Reproductive Disorders: No - PSYCHIATRIC Hx Substance Use: No - SURGICAL HISTORY Hx Surgeries: Yes Hx Orthopedic Surgery: Yes (Right Shldr x2, Neck fusion) Meds Allergies/Adverse Reactions: Allergies Allergy/AdvReac Type Severity Reaction Status Date / Time No Known Allergies Allergy Verified 06/16/17 21:31 - Medications Medications: Current Medications Acetaminophen (Tylenol 325mg Tab) 650 mg PO Q4H PRN; Protocol PRN Reason: Pain, Mild (1-3) Amitriptyline HCl (Elavil) 25 mg PO HS DAVID PRN Reason: Protocol Last Admin: 06/17/17 21:47 Dose: 25 mg Amlodipine Besylate (Norvasc) 5 mg PO DAILY DAVID PRN Reason: Protocol Last Admin: 06/17/17 10:43 Dose: 5 mg Cyanocobalamin (Vitamin B12 1000 Mcg/Ml Inj) 1,000 mcg IM DAILY DAVID PRN Reason: Protocol Last Admin: 06/17/17 10:42 Dose: 1,000 mcg Folic Acid (Folic Acid) 1 mg PO DAILY DAVID PRN Reason: Protocol Last Admin: 06/17/17 10:43 Dose: 1 mg Losartan Potassium (Cozaar) 100 mg PO DAILY DAVID PRN Reason: Protocol Last Admin: 06/17/17 10:43 Dose: 100 mg Methylprednisolone (Solu-Medrol) 60 mg IVP Q12 DAVID PRN Reason: Protocol Last Admin: 06/17/17 21:47 Dose: 60 mg Ondansetron HCl (Zofran Inj) 4 mg IVP Q6H PRN; Protocol PRN Reason: Nausea/Vomiting Oxycodone/Acetaminophen (Percocet 5/325 Mg Tab) 1 tab PO Q6H PRN; Protocol PRN Reason: Pain, moderate (4-7) Stop: 06/19/17 18:11 Last Admin: 06/17/17 21:47 Dose: 1 tab Physical Exam - Constitutional Appears: Well, Non-toxic - Head Exam Head Exam: ATRAUMATIC, NORMAL INSPECTION, NORMOCEPHALIC - Eye Exam Eye Exam: Normal appearance - ENT Exam ENT Exam: Mucous Membranes Moist - Neck Exam Neck exam: Positive for: Normal Inspection - Respiratory Exam Respiratory Exam: Clear to Auscultation Bilateral, NORMAL BREATHING PATTERN - Cardiovascular Exam Cardiovascular Exam: REGULAR RHYTHM, +S1, +S2 - GI/Abdominal Exam GI & Abdominal Exam: Normal Bowel Sounds, Soft - Extremities Exam Extremities exam: Positive for: normal inspection - Back Exam Back exam: NORMAL INSPECTION - Neurological Exam Neurological exam: CN II-XII Intact, Oriented x3 - Skin Skin Exam: Normal Color, Warm Results - Vital Signs Recent Vital Signs: Last Vital Signs Temp 98.2 F 06/17/17 10:00 Pulse 86 06/17/17 11:35 Resp 20 06/17/17 10:00 BP 171/84 H 06/17/17 11:35 Pulse Ox 98 06/17/17 11:35 Assessment & Plan - Assessment and Plan (Free Text) Assessment: 1. Lung Cancer, left upper lobe mass. Adenocarcinoma. Likely stage III . CT PET upon discharge from hospital. We will discuss the treatment options of chemo-radiation with daughter. Discussed with patient. Discussed with Dr. Siddiqui.. Molecular profile to be sent on tissue specimen. . 2. 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 It should improve with treatment of malignancy. B12 deficiency, B12, folic acid daily for 7 days, then weekly. 3. PT to continue. 4. No pain. Thank you for allowing us to participate in his care. - Date & Time Date: 06/16/17 Time: 18:00
--- NOTE | 2017-06-18 00:16 | CON ---
DATE: 06/17/2017 ORTHOPEDIC CONSULTATION LOCATION: Room 371, bed 6. HISTORY OF PRESENT ILLNESS: Patient is a 77-year-old male. I was asked to see him for a left shoulder discomfort. He can move his left shoulder quite well, maybe not full, but he has about 50% range of motion. He recently had a left shoulder prosthesis performed for osteoarthritis and fracture of his left shoulder. Could not get a good history. He is not quite sure when it was done looks as though it is about over a year or two. The scar is well healed. No evidence of infection. No tenderness to palpation. He has some normal bursitis, achiness in the big piece of metal in the left shoulder that creates impingement and bursitis. I am going to just get sed rate and C-reactive protein to evaluate for infection. His sed rate back in 04/07/2016, was basically within normal limits at 13. So, we will give him mild exercises, avoid an injection of cortisone because of the prosthesis and evaluate for infection and told him do not lean on that left shoulder because it is an artificial shoulder and too much weight on it could loosen it and if he just stay away from heavy lifting, gentle range of motion should be fine. There is no need for cortisone shot because of the prosthesis of his left shoulder and does not appear to be infection, but I will further work him up with some blood tests. Otherwise, he could just do mild physical therapy. FINAL DIAGNOSIS: Well positioned left shoulder reverse prosthesis done an year or two ago, and I will follow him to make sure it is not infection. Patrick Smith DO HELEN
[2017-06-18] MEDS: Oxycodone/Acetaminophen 5/325 mg Tab PO PRN (12:12)
--- NOTE | 2017-06-18 12:46 | CP.PCM.CON ---
History of Present Illness - History of Present Illness History of Present Illness: Mr Anderson is a 77 year old male with a newly diagnosed locally advanced Pancoast tumor. His history dates back to 2016 when he presented with left shoulder pain and weakness following surgery for his left shoulder and cervical spine. He had physical therapy, but no improvement in his symptoms. More recently, he started falling at home. Last week, he fell and could not get up. His family brought him to the hospital for further evaluation. A CT of the head and c-spine on June 11, 2017 was negative. A MRI of the brain on June 12, [address] of the chest on June 12, 2017 revealed a 3.8cm left apical lung tumor extending to the supraclavicular fossa. The tumor surrounded the left subclavian artery. A biopsy on June [address] of the abdomen and pelvis on June 16, 2017 revealed no metastases. He is currently in TCU undergoing physical therapy. We were asked to see him regarding radiation therapy. Review of Systems - Constitutional Constitutional: Weakness - Musculoskeletal Musculoskeletal: Limited Range of Motion, Muscle Weakness (left shoulder pain) - Neurological Neurological: Focal Weakness, Paresthesias Past Patient History - Infectious Disease Hx of Infectious Diseases: None - Past Social History Smoking Status: Heavy Smoker > 10 Cigarettes Daily Alcohol: Social Home Situation {Lives}: With Family - CARDIAC Hx Hypertension: Yes - NEUROLOGICAL HX Cerebrovascular Accident: Yes - HEENT Hx Cataracts: Yes - MUSCULOSKELETAL/RHEUMATOLOGICAL Hx Falls: Yes - GASTROINTESTINAL Hx Gastrointestinal Disorders: No - GENITOURINARY/GYNECOLOGICAL Hx Genitourinary Disorders: No Hx Reproductive Disorders: No - PSYCHIATRIC Hx Substance Use: No - SURGICAL HISTORY Hx Surgeries: Yes Hx Orthopedic Surgery: Yes (Right Shldr x2, Neck fusion) Meds Allergies/Adverse Reactions: Allergies Allergy/AdvReac Type Severity Reaction Status Date / Time No Known Allergies Allergy Verified 06/16/17 21:31 - Medications Medications: Current Medications Acetaminophen (Tylenol 325mg Tab) 650 mg PO Q4H PRN; Protocol PRN Reason: Pain, Mild (1-3) Amitriptyline HCl (Elavil) 25 mg PO HS DAVID PRN Reason: Protocol Last Admin: 06/17/17 21:47 Dose: 25 mg Amlodipine Besylate (Norvasc) 5 mg PO DAILY DAVID PRN Reason: Protocol Last Admin: 06/18/17 10:18 Dose: 5 mg Cyanocobalamin (Vitamin B12 1000 Mcg/Ml Inj) 1,000 mcg IM DAILY DAVID PRN Reason: Protocol Last Admin: 06/18/17 10:18 Dose: 1,000 mcg Folic Acid (Folic Acid) 1 mg PO DAILY DAVID PRN Reason: Protocol Last Admin: 06/18/17 10:18 Dose: 1 mg Losartan Potassium (Cozaar) 100 mg PO DAILY DAVID PRN Reason: Protocol Last Admin: 06/18/17 10:18 Dose: 100 mg Methylprednisolone (Solu-Medrol) 60 mg IVP Q12 DAVID PRN Reason: Protocol Last Admin: 06/18/17 10:18 Dose: 60 mg Ondansetron HCl (Zofran Inj) 4 mg IVP Q6H PRN; Protocol PRN Reason: Nausea/Vomiting Oxycodone/Acetaminophen (Percocet 5/325 Mg Tab) 1 tab PO Q6H PRN; Protocol PRN Reason: Pain, moderate (4-7) Stop: 06/19/17 18:11 Last Admin: 06/18/17 12:12 Dose: 1 tab Physical Exam - Eye Exam Eye Exam: EOMI - ENT Exam ENT Exam: Mucous Membranes Moist - Neck Exam Additional comments: left SCV adenopathy - Respiratory Exam Respiratory Exam: Clear to Auscultation Bilateral - Cardiovascular Exam Cardiovascular Exam: REGULAR RHYTHM - GI/Abdominal Exam GI & Abdominal Exam: Normal Bowel Sounds - Neurological Exam Neurological exam: CN II-XII Intact, Oriented x3 Additional comments: left arm and hand weakness 4/5 with paresthesia Results - Vital Signs Recent Vital Signs: Last Vital Signs Temp 98.2 F 06/17/17 10:00 Pulse 86 06/17/17 11:35 Resp 20 06/17/17 10:00 BP 149/86 06/18/17 10:18 Pulse Ox 98 06/17/17 11:35 - Labs Labs: Laboratory Results - last 24 hr 06/18/17 06/18/17 06:00 06:00 ESR 20 H C-Reactive Protein < 5.00 Assessment & Plan - Assessment and Plan (Free Text) Assessment: Mr Anderson is a 77 year old male with a newly diagnosed locally advanced Pancoast tumor. We would concur that he would benefit from a CT/PET for staging purposes once he is discharged from the TCU. He would benefit from radiation therapy. Typically, locally advanced Pancoast tumors are treated with chemoradiation. We spoke to Dr Frederick, and she felt that would not tolerate a combined concurrent approach. She will be giving him a couple of cycles of chemotherapy followed by radiation therapy. We spoke to him and his daughter about radiation therapy. We will give him an appointment to discuss radiation further after his 2nd cycle of chemotherapy.
--- NOTE | 2017-06-18 14:07 | PN ---
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 The patient is doing well with Physical therapy and Occupational Therapy. Consultation with Dr. 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 The patient is seen with his and daughter, doing well. VITAL SIGNS: Stable. PLAN: Continue physical occupational therapy and plan for outpatient chemotherapy and radiation. Zafar Blackwell MD
[2017-06-19] MEDS: Oxycodone/Acetaminophen 5/325 mg Tab PO PRN ×2 (10:32→21:21)
[2017-06-19] MEDS ORDERED: Oxycodone/Acetaminophen 5/325 mg Tab PO PRN (11:40)
--- NOTE | 2017-06-19 16:30 | PN ---
DATE: 06/19/2017 SUBJECTIVE: The patient is a 77-year-old, patient of Dr. Blackwell, covering for him, was seen in gym, complained of left shoulder pain and whatever he has been given is not helping, participating in therapy according to his who is at the bedside. He wants to go home. Eating and tolerating. No nausea or vomiting. No diarrhea. PHYSICAL EXAMINATION: VITAL SIGNS: Patient is afebrile, pulse 89, respirations 20, blood pressure 138/84. LUNGS: Bilateral fair airflow. No rhonchi or crackle. HEART: S1, S2 audible. ABDOMEN: Soft, nontender. No rebound. No guarding. NEUROLOGIC: Patient is awake, alert, oriented, communicative. Left shoulder has limited extension and adduction. LABORATORY EXAM: C-reactive protein is less than 5. His ESR is 20. ASSESSMENT: 1. Deconditioning and difficulty walking. 2. Left upper lung mass. CT guided biopsy revealed adenocarcinoma. 3. Ataxia, status post multiple falls. 4. History of hypertension. 5. History of cerebrovascular accident. PLAN: Currently patient is on Percocet every 6 hours. He is on Solu-Medrol 60 every 12 hours. We will add Mobic and increase his Percocet to every 4 as needed. Abdirahman Sin MD
--- NOTE | 2017-06-19 23:20 | CP.PCM.PN ---
Subjective - Date & Time of Evaluation Date of Evaluation: 06/18/17 Time of Evaluation: 09:00 - Subjective Subjective: he is comfortable in bed. No chest pain. No shortness of breath. Unsteady gait. CT abdomen no metastatic lesions. Objective - Vital Signs/Intake and Output Vital Signs (last 24 hours): Temp Pulse Resp BP Pulse Ox 97.4 F L 66 22 162/96 H 99 06/19/17 16:00 06/19/17 16:15 06/19/17 16:00 06/19/17 16:00 06/19/17 16:15 - Medications Medications: Current Medications Acetaminophen (Tylenol 325mg Tab) 650 mg PO Q4H PRN; Protocol PRN Reason: Pain, Mild (1-3) Amitriptyline HCl (Elavil) 25 mg PO HS DAVID PRN Reason: Protocol Last Admin: 06/19/17 21:20 Dose: 25 mg Amlodipine Besylate (Norvasc) 5 mg PO DAILY DAVID PRN Reason: Protocol Last Admin: 06/19/17 10:30 Dose: 5 mg Cyanocobalamin (Vitamin B12 1000 Mcg/Ml Inj) 1,000 mcg IM DAILY DAVID PRN Reason: Protocol Last Admin: 06/19/17 10:32 Dose: 1,000 mcg Folic Acid (Folic Acid) 1 mg PO DAILY DAVID PRN Reason: Protocol Last Admin: 06/19/17 10:30 Dose: 1 mg Losartan Potassium (Cozaar) 100 mg PO DAILY DAVID PRN Reason: Protocol Last Admin: 06/19/17 10:30 Dose: 100 mg Meloxicam (Mobic) 15 mg PO DAILY [facility] Last Admin: 06/19/17 12:11 Dose: 15 mg Methylprednisolone (Solu-Medrol) 60 mg IVP Q12 DAVID PRN Reason: Protocol Last Admin: 06/19/17 21:20 Dose: 60 mg Ondansetron HCl (Zofran Inj) 4 mg IVP Q6H PRN; Protocol PRN Reason: Nausea/Vomiting Oxycodone/Acetaminophen (Percocet 5/325 Mg Tab) 1 tab PO Q6H PRN PRN Reason: Pain, moderate (4-7) Stop: 06/22/17 21:03 Last Admin: 06/19/17 21:21 Dose: 1 tab - Constitutional Appears: Well - Head Exam Head Exam: ATRAUMATIC, NORMAL INSPECTION, NORMOCEPHALIC - Eye Exam Eye Exam: Normal appearance - ENT Exam ENT Exam: Mucous Membranes Moist - Neck Exam Neck Exam: Normal Inspection - Cardiovascular Exam Cardiovascular Exam: REGULAR RHYTHM, +S1, +S2 - GI/Abdominal Exam GI & Abdominal Exam: Soft, Normal Bowel Sounds - Extremities Exam Extremities Exam: Normal Inspection - Back Exam Back Exam: NORMAL INSPECTION - Neurological Exam Neurological Exam: Alert, Awake, Oriented x3 - Skin Skin Exam: Normal Color, Warm Assessment and Plan - Assessment and Plan (Free Text) Assessment: 1. lung Cancer . adeno carcinoma. left upper lobe. CT PET upon discharge from hospital. , daughter bed side. Patient first initially refused treatment for lung cancer. He agreed after discussion with them. Chemo/radiation offered . 2. port placement scheduled for next week. 3. ataxia : continue PT.
[2017-06-20] MEDS: MethylPREDNISolone 40 mg Vial IVP SCH (21:26)
--- NOTE | 2017-06-20 23:32 | PN ---
DATE: 04/20/2017 SUBJECTIVE: The patient is a 77-year-old, seen and examined, lying in bed, complained of left shoulder pain, states the Mobic did not help any bit. Eating and tolerating. PHYSICAL EXAMINATION: VITAL SIGNS: He is afebrile, pulse 78, respirations 17, blood pressure 132/66. LUNGS: Bilateral good airflow. No rhonchi or crackle. HEART: S1 and S2 audible. ABDOMEN: Soft, nontender. No rebound. No guarding. NEUROLOGIC: The patient is awake, alert, oriented, able to communicate. LABORATORY DATA: X-ray of the shoulder that was done shows left shoulder prosthesis and is in satisfactory alignment, no dislocation or loosening was seen. ASSESSMENT: 1. Left shoulder pain, probably arthritic versus muscular. 2. History of hypertension. 3. Carcinoma of lung. 4. Left upper lung mass and adenocarcinoma by biopsy. 5. Ataxia, status post multiple falls. 6. History of cerebrovascular accident in the past. PLAN: We will continue the patient on Percocet, continue him on Mobic. Continue physical therapy. We will cut down his steroid to 40 every 12 hours. Abdirahman Sin MD
[2017-06-21] MEDS: MethylPREDNISolone 40 mg Vial IVP SCH ×2 (09:49→22:23)
[2017-06-21] MEDS: Oxycodone/Acetaminophen 5/325 mg Tab PO PRN (19:43)
--- NOTE | 2017-06-21 20:13 | PN ---
DATE: 06/21/2017 SUBJECTIVE: The patient is a 77-year-old, seen and examined, lying in bed, complaining of left shoulder pain. Eating fair. Participating in therapy. PHYSICAL EXAMINATION VITAL SIGNS: Afebrile, pulse 95, respirations 18, blood pressure 133/76. LUNGS: Bilateral fair airflow. No rhonchi or crackle. HEART: S1 and S2 audible. ABDOMEN: Soft, nontender. No rebound. No guarding. NEUROLOGIC: He is awake, alert, oriented, communicative. Able to ambulate. LABORATORY DATA: CRP 5. ESR of 20. ASSESSMENT: 1. Deconditioning and difficulty walking. 2. Ataxia, resulting in multiple falls. 3. Left upper lung mass, status post CT guided biopsy showing adenocarcinoma of the lung. 4. History of cerebrovascular accident in remote past. 5. 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 PLAN: We will continue patient on current medication, has been started on Mobic for a couple of days. Encourage physical therapy. Analgesics as needed. We will continue him on methylprednisolone and Dr. Blackwell will follow up the patient in a.m. Abdirahman Sin MD MTDD
[2017-06-22] MEDS: Oxycodone/Acetaminophen 5/325 mg Tab PO PRN ×2 (09:48→17:03)
--- NOTE | 2017-06-22 09:52 | PN ---
DATE: 06/22/2017 SUBJECTIVE: A 77-year-old white male, complaining of left shoulder pain, history of left shoulder pain, history of left shoulder replacement. Recent x-rays are normal. Status post visit by Dr. Smith. We will have a reconsult for possible shoulder injection. PHYSICAL EXAMINATION: VITAL SIGNS: The patient is afebrile. Vital signs are stable. Blood pressure is 135/73. GENERAL: The patient is awake and alert x3. CHEST: Clear to auscultation and percussion. ABDOMEN: Benign. EXTREMITIES: Without cyanosis, clubbing or edema. ASSESSMENT AND PLAN: The patient has a left Pancoast tumor adenocarcinoma. Awaiting tumor markers. He was seen on consultation by Dr. Frederick for Oncology and also by Dr. Jain for Radiation Oncology. The patient will have an outpatient PET CT and followup by beginning of chemo and radiation as appropriate. Zafar Blacwkell MD
[2017-06-22] MEDS ORDERED: Lidocaine 5% Patch TD SCH (21:00)
--- NOTE | 2017-06-23 00:39 | PN ---
DATE: 06/22/2017 SUBJECTIVE: He is complaining of left shoulder pain. He is comfortable in bed. Participating in physical therapy. REVIEW OF SYSTEMS: As per HPI. Rest of 12-point review of systems reviewed and negative. PHYSICAL EXAMINATION: GENERAL: Comfortable in bed, in no acute distress. VITAL SIGNS: Temperature 98.7, heart rate 98 per minute, blood pressure 144/70, oxygen saturation 98% on room air. HEENT: Pallor positive. NECK: No lymphadenopathy. CHEST: Air entry present and equal bilaterally. No added sounds. CARDIOVASCULAR: S1 and S2 normal. No murmur. No gallop. ABDOMEN: Soft, nontender. No hepatosplenomegaly. EXTREMITIES: No edema. SYSTEMS TEST TECHNICIAN: Alert, oriented x3. No focal sensory or motor deficit. LABORATORY DATA: None current. ASSESSMENT: 1. Left upper lobe adenocarcinoma. 2. ataxia. 3. Left shoulder pain. PLAN: I discussed with Dr. Damian Shine for port placement. I communicated to Mr. Galicia that port placement will be scheduled this week. He declined the port placement. He said he would rather than to undergo treatment for cancer. I will discuss with daughter Bia and his . He has been constantly denying to undergo any treatment for cancer. He has stage II-III lung cancer, which is treatable. I had discussed with him prior that without treatment, prognosis is poor. He agreed with the treatment in front of family earlier. I would recommend Lidoderm patch on the left shoulder for left shoulder pain. B12 deficiency, currently on B12 daily. Thank you Dr. Blackwell for allowing us to participate in Mr. Galicia's care. Keisha Frederick MD MTDAmaury
[2017-06-23 10:28] VITALS: PULSE 95
[2017-06-23 16:53] VITALS: RESP 16; TEMP 98.2; O2SAT 100
--- NOTE | 2017-06-23 16:58 | CARD ---
APPROVED REPORT EKG Measurement Heart [id number] <Conclusion> Normal sinus rhythm Normal ECG
[2017-06-23 17:00] LABS: BASO # 0.02 K/mm3 (0.0-2.0); BASO % 0.1 % (0.0-3.0); EOS % 0.2 % (1.5-5.0); GRAN # 13.42 (1.4-6.5); GRAN % 83.6 % (50.0-68.0); HEMOGLOBIN 13.8 g/dL (14.0-18.0); LYMPH # 1.4 (1.2-3.4); LYMPH % 8.6 % (22.0-35.0); MEAN CELL VOLUME 93.6 fl (80.0-105.0); MEAN CORPUSCULAR HEMOGLOBIN 31.6 pg (25.0-35.0); MEAN CORPUSCULAR HGB CONC 33.7 g/dl (31.0-37.0); MEAN PLATELET VOLUME 9.7 fl (7.0-11.0); MONO # 1.2 (0.1-0.6); MONO % 7.5 % (1.0-6.0); RBC 4.37 10^6/uL (3.5-6.1); RED CELL DISTRIBUTION WIDTH 12.7 % (11.5-14.5); WHITE BLOOD COUNT 16.1 10^3/ul (4.5-11.0)
[2017-06-23 17:10] LABS: INR 0.86 (0.93-1.08); PARTIAL THROMBOPLASTIN TIME 23.5 Seconds (25.1-36.5); PROTHROMBIN TIME 9.8 SECONDS (9.4-12.5)
[2017-06-23 17:14] LABS: ALB/GLOB RATIO 1.2 (1.1-1.8); ALBUMIN 3.4 g/dL (3.0-4.8); ALT/SGPT 271 U/L (7-56); AST/SGOT 86 U/L (17-59); BLOOD UREA NITROGEN 38 mg/dL (7-21); GFR NON-AFRICAN AMERICAN > 60
[2017-06-23] MEDS ORDERED: Sod Polystyrene Sulf 15 gm/60 ml Susp PO ONE (18:54)
[2017-06-23] MEDS ORDERED: Oxycodone/Acetaminophen 5/325 mg Tab PO PRN (19:38)
[2017-06-23] MEDS ORDERED: Lidocaine 5% Patch TD SCH (21:00)
--- NOTE | 2017-06-24 00:24 | CP.PCM.PN ---
Subjective - Date & Time of Evaluation Date of Evaluation: 06/23/17 Time of Evaluation: 18:00 - Subjective Subjective: No shoulder pain today. Lidoderm patch put on left shoulder yesterday but he took it out saying it does not work. No nausea, vomiting. Gait improved. Objective - Vital Signs/Intake and Output Vital Signs (last 24 hours): Temp Pulse Resp BP Pulse Ox 98.2 F 95 H 16 160/77 H 100 06/23/17 10:00 06/23/17 10:21 06/23/17 10:00 06/23/17 10:21 06/23/17 10:00 - Medications Medications: Current Medications Acetaminophen (Tylenol 325mg Tab) 650 mg PO Q4H PRN; Protocol PRN Reason: Pain, Mild (1-3) Last Admin: 06/23/17 10:26 Dose: 650 mg Amitriptyline HCl (Elavil) 25 mg PO HS DAVID PRN Reason: Protocol Last Admin: 06/23/17 21:27 Dose: 25 mg Amlodipine Besylate (Norvasc) 5 mg PO DAILY DAVID PRN Reason: Protocol Last Admin: 06/23/17 10:21 Dose: 5 mg Cyanocobalamin (Vitamin B12 1000 Mcg/Ml Inj) 1,000 mcg IM DAILY DAVID PRN Reason: Protocol Last Admin: 06/23/17 10:22 Dose: 1,000 mcg Folic Acid (Folic Acid) 1 mg PO DAILY DAVID PRN Reason: Protocol Last Admin: 06/23/17 10:21 Dose: 1 mg Lidocaine (Lidoderm) 1 ea TD 2100 DAVID PRN Reason: Protocol Last Admin: 06/23/17 21:28 Dose: 1 ea Losartan Potassium (Cozaar) 100 mg PO DAILY DAVID PRN Reason: Protocol Last Admin: 06/23/17 10:20 Dose: 100 mg Meloxicam (Mobic) 15 mg PO DAILY [facility] Last Admin: 06/23/17 10:21 Dose: 15 mg Ondansetron HCl (Zofran Inj) 4 mg IVP Q6H PRN; Protocol PRN Reason: Nausea/Vomiting Oxycodone/Acetaminophen (Percocet 5/325 Mg Tab) 1 tab PO Q6H PRN; Protocol PRN Reason: Pain, moderate (4-7) Stop: 06/26/17 19:39 Prednisone (Prednisone Tab) 10 mg PO DAILY [facility] Last Admin: 06/23/17 10:22 Dose: 10 mg - Labs Labs: 06/23/17 16:56 06/23/17 16:56 PT 9.8 SECONDS (9.4-12.5) 06/23/17 16:56 INR 0.86 (0.93-1.08) L 06/23/17 16:56 APTT 23.5 Seconds (25.1-36.5) L 06/23/17 16:56 - Constitutional Appears: Well, Non-toxic - Head Exam Head Exam: ATRAUMATIC, NORMAL INSPECTION, NORMOCEPHALIC - Eye Exam Eye Exam: Normal appearance - ENT Exam ENT Exam: Mucous Membranes Moist, Normal Exam - Neck Exam Neck Exam: Normal Inspection - Respiratory Exam Respiratory Exam: Clear to Ausculation Bilateral, NORMAL BREATHING PATTERN - Cardiovascular Exam Cardiovascular Exam: REGULAR RHYTHM, +S1, +S2 - GI/Abdominal Exam GI & Abdominal Exam: Soft, Normal Bowel Sounds - Extremities Exam Extremities Exam: Normal Inspection - Back Exam Back Exam: NORMAL INSPECTION - Neurological Exam Neurological Exam: Alert, CN II-XII Intact, Oriented x3 - Skin Skin Exam: Normal Color Assessment and Plan - Assessment and Plan (Free Text) Assessment: 1. Adeno Ca left apex. Likely stage III. CT-PET requested to be scheduled. 2. Port placement tomorrow for initiation of chemo. 3. Hyperkalemia : Kayaxelate 30 gm PO. repeat BMP in am. 4. Discussed with daughter about port and CT- PET. 5. 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 Thank you Dr. Blackwell for allowing us to participate in his care.
[2017-06-24 05:26] VITALS: BP 148/80
[2017-06-24 06:19] LABS: ALB/GLOB RATIO 1.2 (1.1-1.8); ALBUMIN 3.4 g/dL (3.0-4.8); ALT/SGPT 224 U/L (7-56); AST/SGOT 72 U/L (17-59); BLOOD UREA NITROGEN 30 mg/dL (7-21); CALCIUM 8.5 mg/dL (8.4-10.5); GFR NON-AFRICAN AMERICAN > 60
--- NOTE | 2017-06-24 11:43 | PN ---
DATE: 06/24/2017 SUBJECTIVE: The patient is seen in TCU, doing physical therapy, occupational therapy, occasionally complaining of the left shoulder pain. PHYSICAL EXAMINATION: VITAL SIGNS: Stable. CHEST: Clear to auscultation and percussion. ABDOMEN: Benign. HEART: Regular sinus rhythm. ASSESSMENT AND PLAN: The patient is discussed discharge for the following day. The patient will be discharged to have Port-A-Cath inserted for chemotherapy. Once he is discharged, he will start his radiation therapy. Plan is for discharge in the morning for Port-A-Cath and start chemo and radiation. The patient will have an EKG, laboratory data done prior to discharge. The patient to be n.p.o. after midnight. Zafar Blackwell MD
--- NOTE | 2017-06-25 06:10 | DS ---
HISTORY OF PRESENT ILLNESS: Patient is a 77-year-old white male who was admitted to [facility] and transferred to TCU. Patient was found to have Pancoast tumor at the left apex consistent with adenocarcinoma. There was no metastatic disease noted at this time. Patient was seen in consultation with Dr. Frederick, Dr. Damian Shine for Port-A-Cath and also Dr. Smith because of persistent left shoulder pain. Patient has a left shoulder prosthesis. Patient was injected, did physical therapy, was also seen in consultation by Dr. Jain for Radiation Oncology. Patient will follow up radiation and chemotherapy, and once he is discharged, he will also have an outpatient PET scan. Patient being discharged in improved condition, does have some hypertension. FINAL DISCHARGE DIAGNOSES: Pancoast tumor adenocarcinoma of the left apex of the left lung, hypertension, persistent left shoulder pain, mild memory loss. Patient is discharged home in improved condition. Zafar Blackwell MD
--- NOTE | 2017-06-28 15:09 | HP ---
DATE OF EXAM: HISTORY OF PRESENT ILLNESS: A 77-year-old white male admitted to the hospital after multiple falls and injuring his left shoulder and hitting his head. Patient was admitted to the hospital because of inability to ambulate and to walk without falling. Patient had a CT of the head, which was negative. Patient was found on chest x-ray to have a mass in the left apex. Patient was unsteady of gait. He had no loss of strength in the upper and lower extremities, but did have some pain in the left shoulder, has a history of left shoulder replacement. PAST MEDICAL HISTORY: Includes tobacco abuse, COPD, left shoulder replacement, mild hypertension, mild cognitive impairment. The patient states that his symptoms had occurred over the last 3-4 weeks with worsening gait imbalance and increasing falls over the last 3-4 weeks. Patient does note a history of travel to [facility]. He does have a positive history of tobacco abuse. PHYSICAL EXAMINATION: GENERAL: Shows a well-developed, but thin white male in mild distress. HEENT: Within normal limits. HEART: Regular sinus rhythm. CHEST: Rhonchi and rales in the lung rollins. There is no palpable adenopathy. There is no superior or infraclavicular nodularity. There is decreased range of motion of the left arm and shoulder. ABDOMEN: Benign. EXTREMITIES: Without cyanosis, clubbing, or edema. NEUROLOGIC: Grossly intact except for ataxia and wide-based gait. IMPRESSION: Multiple falls, inability to ambulate, ataxia, lung mass, chronic obstructive pulmonary disease and mild cognitive impairment. Zafar Blackwell MD
== END 2017-06-24 07:33 | disposition home or self-care (01) | DRG 92 ==
LOC: TRCU 18:06
PROVIDERS: ADMIT Internal Medicine; ATTEND Internal Medicine
PROC: F07Z9ZZ Gait Training/Functional Ambulation Treatment (ICD-10-PCS; principal; 2017-06-18)
PROC: F07L6YZ Therapeutic Exercise Treatment of Musculoskeletal System - Lower Back / Lower Extremity using Other Equipment (ICD-10-PCS; 2017-06-18)
PROC: F08Z1FZ Dressing Techniques Treatment using Assistive, Adaptive, Supportive or Protective Equipment (ICD-10-PCS; 2017-06-18)
PROC: F08Z2FZ Grooming/Personal Hygiene Treatment using Assistive, Adaptive, Supportive or Protective Equipment (ICD-10-PCS; 2017-06-18)
DX: R27.0 Ataxia, unspecified (principal); C34.12 Malignant neoplasm of upper lobe, left bronchus or lung; G13.0 Paraneoplastic neuromyopathy and neuropathy; R29.6 Repeated falls; M19.012 Primary osteoarthritis, left shoulder; I10 Essential (primary) hypertension; M54.12 Radiculopathy, cervical region; E53.8 Deficiency of other specified B group vitamins; E87.5 Hyperkalemia; H40.9 Unspecified glaucoma; Z96.612 Presence of left artificial shoulder joint; F17.200 Nicotine dependence, unspecified, uncomplicated; R41.3 Other amnesia; Z86.73 Personal history of transient ischemic attack (TIA), and cerebral infarction without residual deficits

== ENCOUNTER 2017-06-24 07:16 | Day surgery (SDC) | payer MEDICARE, OTHER ==
[2017-06-19 13:16] VITALS: BMI 20.8
[2017-06-24] MEDS ORDERED: Lidocaine 2% Inj (20ml) ONE (07:35)
[2017-06-24] MEDS ORDERED: Midazolam 2 MG/2 ML VIAL ONE (08:29)
[2017-06-24] MEDS ORDERED: Oxycodone/Acetaminophen 5/325 mg Tab PO PRN (10:41)
[2017-06-24] MEDS ORDERED: Sodium Chloride 0.45% 1,000 ML IV SCH (10:45)
[2017-06-24 11:08] VITALS: RESP 20; TEMP 97.8
[2017-06-24 11:31] VITALS: PULSE 100; O2SAT 97
[2017-06-24 12:43] VITALS: BP 132/70
--- NOTE | 2017-06-24 19:58 | VASCULAR ---
PROCEDURE: Ultrasound and fluoroscopic right internal jugular venous access port. CLINICAL HISTORY: Left Pancoast carcinoma.Venous port for chemotherapy. PHYSICIAN(S): Damian Shine M.D. TECHNIQUE: The relative risks and indications of the procedure were explained to the patient and consent obtained. The patient was placed supine on the arteriogram table and the right neck and chest prepped and draped in the usual sterile fashion. Conscious sedation monitoring was provided throughout the procedure by a nurse. Antibiotics were given prior to the procedure. Under direct ultrasound guidance, the right internal jugular vein was punctured with a micro-puncture set. A 0.035 angled Glidewire was advanced into the IVC. A 4 cm incision was made below the right clavicle and the pocket bluntly dissected. An 8 Upper Sorbian catheter 25 cm long was advanced to the SVC/RA junction. The catheter was trimmed and attached to the port. The port aspirates and injects easily. The port was placed in the pocket and closed in 2 layers.. The patient tolerated the procedure well. IMPRESSION: Ultrasound and fluoroscopically placed right internal jugular venous access port.
== END 2017-06-24 13:10 | disposition home or self-care (01) ==
LOC: SDSVAS 07:16
PROVIDERS: ATTEND Radiology Vascular & Interventional Radiology
DX: C34.12 Malignant neoplasm of upper lobe, left bronchus or lung (principal); I10 Essential (primary) hypertension
CPT/HCPCS: 36561; 76937; 77001; 99152; C1769; C1788; J0690; J1644; J2250; J2405; J3010; J7030 ×2

== ENCOUNTER 2017-10-19 14:29 | Inpatient (IN) | payer MEDICARE, OTHER ==
[2017-10-19 15:14] VITALS: BMI 20.7
--- NOTE | 2017-10-19 15:52 | ED PDOC ---
Arrival/HPI - General Chief Complaint: Weakness/Neurological Deficit Time Seen by Provider: 10/19/17 14:46 Historian: Patient, Family (daughter) - History of Present Illness Narrative History of Present Illness (Text): 10/19/17 15:57 A 77 y/o M w/ h/o includes lung CA (last chemo was this morning), falls, right chest port hypertension, CVA who is accompanied by daughter, presenting to the ED sent in by PMD for evaluation of unsteady gait. Patient reports he has been experiencing weakness and having unsteady gait worsening over the past 7 days. She mentions the patient fell this morning, injuring his head.. Patient denies fever, chills, shortness of breath, chest pain, abdominal pain, or any other complaints at this time. Per daughter, patient has had no recent contacts and earlier today both his legs were shaky. She mentions also that patient's left eye has been drooping for the past couple of weeks. He reports his last bowel movement this morning was normal. PMD: Dr. Blackwell Oncologist: Dr. Parry ([place]) Past Medical History - Provider Review Nursing Documentation Reviewed: Yes - Travel History Have you recently traveled outside [place] w/in the past 3 mons?: No - Infectious Disease Hx of Infectious Diseases: None - Cardiac Hx Pacemaker: No - Pulmonary Hx Respiratory Disorders: Yes Hx Lung Cancer: Yes - Neurological Hx Paralysis: No - HEENT Hx HEENT Disorder: Yes Hx Cataracts: Yes - Hematological/Oncological Hx Blood Transfusions: No - Musculoskeletal/Rheumatological Hx Falls: Yes - Gastrointestinal Hx Gastrointestinal Disorders: No - Genitourinary/Gynecological Hx Genitourinary Disorders: No Hx Reproductive Disorders: No - Psychiatric Hx Emotional Abuse: No Hx Physical Abuse: No Hx Substance Use: No - Surgical History Other/Comment: right chest port - Anesthesia Hx Anesthesia Reactions: No Hx Malignant Hyperthermia: No - Suicidal Assessment Feels Threatened In Home Enviroment: No Family/Social History - Physician Review Nursing Documentation Reviewed: Yes Family/Social History: No Known Family HX Smoking Status: Current Some Days Smoker Hx Alcohol Use: No (IN THE PAST) Hx Substance Use: No Allergies/Home Meds Allergies/Adverse Reactions: Allergies No Known Allergies Allergy (Verified 10/19/17 15:12) Home Medications: Home Meds Medication Instructions Recorded Confirmed Amitriptyline [Elavil] 25 mg PO HS 05/04/18 09/10/18 Norvasc 5 mg PO DAILY 06/24/17 10/19/17 Review of Systems - Physician Review All systems were reviewed & negative as marked: Yes - Review of Systems Constitutional: absent: Fevers, Night Sweats Respiratory: absent: SOB Cardiovascular: absent: Chest Pain Gastrointestinal: absent: Abdominal Pain Neurological: Gait Changes (unsteady gait), Other (weakness) Physical Exam Vital Signs Reviewed: Yes Vital Signs Temp Pulse Resp BP Pulse Ox 10/19/17 19:55 76 18 132/65 97 10/19/17 19:00 69 18 118/65 98 10/19/17 16:31 75 18 121/61 98 10/19/17 15:22 98.2 F 79 18 119/58 L 98 Temperature: Afebrile Blood Pressure: Normal Pulse: Regular Respiratory Rate: Normal Appearance: Positive for: Well-Appearing, Non-Toxic, Comfortable Pain Distress: None Mental Status: Positive for: Alert and Oriented X 3 - Systems Exam Head: Present: Atraumatic, Normocephalic Pupils: Present: PERRL Extroacular Muscles: Present: EOMI Conjunctiva: Present: Normal Mouth: Present: Moist Mucous Membranes Neck: Present: Normal Range of Motion, Other (healed surgical scar to back of neck.) Respiratory/Chest: Present: Good Air Exchange, Decreased Breath Sounds ( diminished breath sounds near R base). No: Respiratory Distress, Accessory Muscle Use Cardiovascular: Present: Regular Rate and Rhythm, Normal S1, S2. No: Murmurs Abdomen: No: Tenderness, Distention, Peritoneal Signs Back: Present: Normal Inspection Upper Extremity: Present: Normal Inspection. No: Cyanosis, Edema Lower Extremity: Present: Normal Inspection. No: Edema Neurological: Present: GCS=15, CN II-XII Intact, Speech Normal. No: Gait Normal (limp gait towards the right-side.) Skin: Present: Warm, Dry, Normal Color. No: Rashes Psychiatric: Present: Alert, Oriented x 3, Normal Insight, Normal Concentration Medical Decision Making ED Course and Treatment: 10/19/17 16:01 Impression: 77 year old male with weakness and unsteady gait. Physical exam shwos healed surgical scar to back of neck; limp gait towards the right-side. Plan: -- EKG -- Chest CT --CTH -- Chest X-ray -- Blood Culture -- Urine Culture -- Urinalysis -- Labs -- Reassess and disposition Prior Visits: Notes and results from previous visits were reviewed. Patient was last seen her in the emergency department on 06/11/2017 for frequent falls. Progress Notes: 10/19/17 17:22 Labs reviewed and noted to have leukocytosis noted to 13 with shift. CXR reveals right sided infiltrate. Zosyn ordered. 10/19/17 20:36 Spoke to KORIN Oro(works with Dr. Blackwell) who accepts patient onto his service. - Lab Interpretations Microbiology Results: Microbiology Results 10/19/17 16:06 Blood Blood Culture - Preliminary NO GROWTH AFTER 3 DAYS 10/19/17 15:45 Blood Blood Culture - Preliminary NO GROWTH AFTER 3 DAYS Lab Results: 10/20/17 10:30 10/20/17 10:30 Lab Results 10/20/17 10:30: Free T4 0.99, TSH 3rd Generation 0.40 L 10/20/17 10:30: WBC 14.1 H, RBC 2.31 L, Hgb 8.2 L, Hct 24.4 L, MCV 105.6 H, MCH 35.5 H, MCHC 33.6, RDW 15.7 H, Plt Count 180, MPV 10.1, Gran % 84.1 H, Lymph % ( Auto) 7.2 L, Robeson % (Auto) 8.7 H, Eos % (Auto) 0.0 L, Baso % (Auto) 0.0, Gran # 11.88 H, Lymph # (Auto) 1.0 L, Robeson # (Auto) 1.2 H, Eos # (Auto) 0.0, Baso # ( Auto) 0.00 10/20/17 10:30: Sodium 141, Potassium 4.6, Chloride 108 H, Carbon Dioxide 26, Anion Gap 12, BUN 17, Creatinine 1.1, Est GFR ( Amer) > 60, Est GFR (Non- Af Amer) > 60, Random Glucose 129 H, Calcium 9.5, Phosphorus 3.2, Magnesium 2.0 , Ferritin 527.0, Total Bilirubin 0.3, AST 27, ALT 11, Alkaline Phosphatase 74, Troponin I 0.03 D, Total Protein 6.5, Albumin 3.5, Globulin 3.0, Albumin/ Globulin Ratio 1.2, Vitamin B12 922, Folate > 20.0 10/20/17 10:30: Iron 78, TIBC 264, % Saturation 29 10/19/17 16:06: Sodium 142, Potassium 4.6, Chloride 108 H, Carbon Dioxide 24, Anion Gap 15, BUN 15, Creatinine 1.0, Est GFR ( Amer) > 60, Est GFR (Non- Af Amer) > 60, Random Glucose 168 H, Calcium 9.5, Magnesium 1.9, Total Bilirubin 0.6, AST 27, ALT 12, Alkaline Phosphatase 79, Troponin I 0.04 D, Total Protein 7.2, Albumin 3.9, Globulin 3.3, Albumin/Globulin Ratio 1.2 10/19/17 16:06: PT 12.5, INR 1.09, APTT 28.4 10/19/17 16:06: WBC 13.8 H, RBC 2.73 L, Hgb 9.5 L D, Hct 28.6 L, MCV 104.8 D, MCH 34.8, MCHC 33.2, RDW 15.5 H, Plt Count 186, MPV 10.1, Gran % 96.0 H, Lymph % (Auto) 2.8 L, Robeson % (Auto) 1.1, Eos % (Auto) 0.0 L, Baso % (Auto) 0.1, Gran # 13.24 H, Lymph # (Auto) 0.4 L, Robeson # (Auto) 0.2, Eos # (Auto) 0.0, Baso # ( Auto) 0.01, Neutrophils % (Manual) 94 H, Lymphocytes % (Manual) 5 L, Monocytes % (Manual) 1, Platelet Evaluation Normal, ESR 126 H I have reviewed the lab results: Yes - RAD Interpretation Radiology Orders: 10/19/17 15:58 CHEST ONE VIEW [RAD] Stat 10/19/17 15:59 CHEST W/O CONTRAST [CT] Stat 10/19/17 16:49 HEAD W/O CONTRAST [CT] Stat 10/21/17 09:30 BRAIN W & WO CONTRAST [MRI] Urgent 10/19/2017 17:[address] IMPRESSION: Left lung apex mass lesion again noted extending to the left subclavian region and encasing the 1st left rib and left subclavian artery. Lytic bony lesion and fracture at the distal portion of the right clavicle. Dictator: Aysha Pearce MD 10/19/2017 18:[address] FINDINGS: HEMORRHAGE: No intracranial hemorrhage. BRAIN: Diffuse atrophy with prominence of the ventricles and sulci noted. No mass effect or edema. Intracranial atherosclerosis. Left frontal parietal hypodensity consistent with chronic encephalomalacia. Scattered periventricular and subcortical white matter hypodensities, which are nonspecific, but often seen with chronic microvascular ischemic disease. 5 mm chronic lacunar infarct, left basal ganglia. Please note that MRI with diffusion imaging is more sensitive in the detection of acute ischemic event. Please note that MRI with diffusion imaging is more sensitive in the detection of acute ischemic event. VENTRICLES: No hydrocephalus. CALVARIUM: Unremarkable. PARANASAL SINUSES: Unremarkable as visualized. No significant inflammatory changes. MASTOID AIR CELLS: Unremarkable as visualized. No inflammatory changes. OTHER FINDINGS: None. IMPRESSION: Generalized atrophy. Left frontal parietal encephalomalacia. 5 mm chronic lacunar infarct, left basal ganglia. Additional findings as above. Dictator: Sussy Hodgson MD - EKG Interpretation EKG Interpretation (Text): NSR @ 67bpm RBBB w/ no ST elevations, no T wave abnormalities Interpreted by ED Physician: Yes Type: 12 lead EKG - Medication Orders Current Medication Orders: Amitriptyline HCl (Elavil) 25 mg PO HS [facility] Last Admin: 10/22/17 21:48 Dose: 25 mg Amlodipine Besylate (Norvasc) 5 mg PO DAILY [facility] Last Admin: 10/22/17 11:05 Dose: 5 mg MAR Pulse and Blood Pressure Document 10/22/17 11:05 PATRICK (Rec: 10/22/17 11:06 [facility] [id number]) Pulse Pulse Rate (60-90) 61 Blood Pressure Blood Pressure (100/60-150/90) 140/61 Dexamethasone (Decadron Inj) 4 mg IVP Q6 [facility] Last Admin: 10/23/17 05:54 Dose: 4 mg IVP Administration Document 10/23/17 05:54 [facility] (Rec: 10/23/17 05:54 [facility] [id number]) Charges for Administration # of IVP Administrations 1 Lidocaine (Lidoderm) 1 ea TD DAILY [facility] Last Admin: 10/22/17 11:05 Dose: 1 ea Re-Assess: MAR Transdermal Patch Removal Document 10/22/17 23:05 [facility] (Rec: 10/23/17 06:06 [facility] [id number]) Transdermal Patch Removal Removal of Transdermal Patch done? Yes Losartan Potassium (Cozaar) 100 mg PO DAILY [facility] Last Admin: 10/22/17 11:05 Dose: 100 mg Oxycodone HCl (Oxycodone Immediate Release Tab) 10 mg PO Q4 PRN PRN Reason: Pain, moderate (4-7) Pantoprazole Sodium (Protonix Ec Tab) 40 mg PO 0600 [facility] Last Admin: 10/23/17 05:54 Dose: 40 mg Discontinued Medications Darbepoetin Daniel (Aranesp) 100 mcg SC ONCE ONE Stop: 10/20/17 10:01 Last Admin: 10/20/17 14:56 Dose: 100 mcg Subcutaneous Administrations Document 10/20/17 14:56 AE (Rec: 10/20/17 14:56 AE [id number]) Injection Site MAR Injection Site Left Arm Charges for Administration # of Subcutaneous Administrations 1 Piperacillin Sod/Tazobactam Sod (Zosyn 4.5 Gm In Ns 100ml) 4.5 gm in 100 mls @ 200 mls/hr IVPB STAT STA PRN Reason: Protocol Stop: 10/19/17 18:03 Last Admin: 10/19/17 19:39 Dose: 200 mls/hr eMAR Start Stop Document 10/19/17 19:39 HI (Rec: 10/19/17 19:39 HI [id number]) Intravenous Solution Start Date 10/19/17 Start Time 19:39 Valacyclovir HCl (Valtrex) 500 mg PO DAILY DAVID PRN Reason: Protocol Last Admin: 10/21/17 14:14 Dose: 500 mg - Scribe Statement The provider has reviewed the documentation as recorded by the Valeria Suero Provider Soloibe Provider Valeria Attestation: All medical record entries made by the Valeria were at my direction and personally dictated by me. I have reviewed the chart and agree that the record accurately reflects my personal performance of the history, physical exam, medical decision making, and the department course for this patient. I have also personally directed, reviewed, and agree with the discharge instructions and disposition. Disposition/Present on Arrival - Present on Arrival Any Indicators Present on Arrival: No History of DVT/PE: No History of Uncontrolled Diabetes: No Urinary Catheter: No History of Decub. Ulcer: No History Surgical Site Infection Following: None - Disposition Have Diagnosis and Disposition been Completed?: Yes Diagnosis: Ataxia, PNA (pneumonia) Disposition: HOSPITALIZED Disposition Time: 20:36 Patient Plan: Observation Condition: FAIR
[2017-10-19 16:20] LABS: BASO # 0.01 K/mm3 (0.0-2.0); BASO % 0.1 % (0.0-3.0); GRAN # 13.24 (1.4-6.5); HEMOGLOBIN 9.5 g/dL (14.0-18.0); LYMPH # 0.4 (1.2-3.4); LYMPH % 2.8 % (22.0-35.0); MEAN CELL VOLUME 104.8 fl (80.0-105.0); MEAN CORPUSCULAR HEMOGLOBIN 34.8 pg (25.0-35.0); MEAN CORPUSCULAR HGB CONC 33.2 g/dl (31.0-37.0); MEAN PLATELET VOLUME 10.1 fl (7.0-11.0); MONO # 0.2 (0.1-0.6); MONO % 1.1 % (1.0-6.0); PLATELET COUNT 186 10^3/uL (120.0-450.0); RBC 2.73 10^6/uL (3.5-6.1); RED CELL DISTRIBUTION WIDTH 15.5 % (11.5-14.5); WHITE BLOOD COUNT 13.8 10^3/ul (4.5-11.0)
[2017-10-19 16:30] LABS: INR 1.09; PARTIAL THROMBOPLASTIN TIME 28.4 Seconds (25.1-36.5); PROTHROMBIN TIME 12.5 SECONDS (9.4-12.5)
[2017-10-19 16:33] LABS: ALB/GLOB RATIO 1.2 (1.1-1.8); ALBUMIN 3.9 g/dL (3.0-4.8); ALT/SGPT 12 U/L (7-56); AST/SGOT 27 U/L (17-59); BLOOD UREA NITROGEN 15 mg/dL (7-21); CALCIUM 9.5 mg/dL (8.4-10.5); GFR NON-AFRICAN AMERICAN > 60
[2017-10-19 16:44] LABS: TROPONIN I 0.04 ng/mL
[2017-10-19 16:55] LABS: LYMPHOCYTE 5 % (22.0-35.0); MONOCYTE 1 % (1.0-6.0); NEUTROPHIL 94 % (50.0-70.0); PLATELET ESTIMATE NORMAL (NORMAL)
--- NOTE | 2017-10-19 17:03 | CT ---
Date of service: 10/19/2017 PROCEDURE: CT Chest without contrast HISTORY: h/o lung cancer on chemo COMPARISON: Comparison is made with the previous study dated 09/02/2017 TECHNIQUE: Contiguous axial images were obtained through the chest without intravenous contrast enhancement. Sagittal and coronal reconstructions were performed. Radiation dose (DLP): 243.07 mGy-cm. This CT exam was performed using one or more of the following dose reduction techniques: Automated exposure control, adjustment of the mA and/or kV according to patient size, and/or use of iterative reconstruction technique. FINDINGS: LUNGS: Again seen is soft tissue mass lesion at the left lung apex extending to the left subclavian region surrounding the left 1st rib and left subclavian artery. There is spiculated small opacity at the right lung apex likely represent scar tissue. Moderate emphysematous changes predominant in the upper lobes are again noted. MEDIASTINUM: Unremarkable thoracic aorta. No aneurysm. Normal sized heart. Main pulmonary artery unremarkable. No vascular congestion. No lymphadenopathy. PLEURA: No pleural fluid. No pneumothorax. BONES: Lytic bony lesion and fracture noted at the distal portion of the right clavicle UPPER ABDOMEN: Nonobstructing calculus at the upper pole of the left kidney is noted measures 4 millimeter. OTHER FINDINGS: None. IMPRESSION: Left lung apex mass lesion again noted extending to the left subclavian region and encasing the 1st left rib and left subclavian artery. Lytic bony lesion and fracture at the distal portion of the right clavicle.
[2017-10-19 17:26] LABS: ERYTHROCYTE SEDIMENTATION RATE 126 mm/hr (0.00-15.0)
[2017-10-19] MEDS ORDERED: Piperacill/Tazo 4.5gm in NS 4.5 GM/100 ML BAG IVPB STA (17:34)
--- NOTE | 2017-10-19 18:29 | CARD ---
APPROVED REPORT Date of service: 10/19/2017 EKG Measurement Heart [id number] <Conclusion> Normal sinus rhythm Normal ECG
--- NOTE | 2017-10-19 18:34 | CT ---
Date of service: 10/19/2017 PROCEDURE: CT HEAD WITHOUT CONTRAST. HISTORY: headache COMPARISON: Noncontrast head CT performed 06/11/17 TECHNIQUE: Axial computed tomography images were obtained through the head/brain without intravenous contrast. Radiation dose: Total exam DLP = 893.33 mGy-cm. This CT exam was performed using one or more of the following dose reduction techniques: Automated exposure control, adjustment of the mA and/or kV according to patient size, and/or use of iterative reconstruction technique. FINDINGS: HEMORRHAGE: No intracranial hemorrhage. BRAIN: Diffuse atrophy with prominence of the ventricles and sulci noted. No mass effect or edema. Intracranial atherosclerosis. Left frontal parietal hypodensity consistent with chronic encephalomalacia. Scattered periventricular and subcortical white matter hypodensities, which are nonspecific, but often seen with chronic microvascular ischemic disease. 5 mm chronic lacunar infarct, left basal ganglia. Please note that MRI with diffusion imaging is more sensitive in the detection of acute ischemic event. Please note that MRI with diffusion imaging is more sensitive in the detection of acute ischemic event. VENTRICLES: No hydrocephalus. CALVARIUM: Unremarkable. PARANASAL SINUSES: Unremarkable as visualized. No significant inflammatory changes. MASTOID AIR CELLS: Unremarkable as visualized. No inflammatory changes. OTHER FINDINGS: None. IMPRESSION: Generalized atrophy. Left frontal parietal encephalomalacia. 5 mm chronic lacunar infarct, left basal ganglia. Additional findings as above.
[2017-10-19] MEDS ORDERED: oxyCODONE 10 mg Immediate Release Tab PO PRN (19:20)
--- NOTE | 2017-10-20 00:41 | CON ---
DATE: 10/19/2017 CONSULT REQUESTED BY: Dr. Blackwell. REASON FOR CONSULTATION: Lung cancer and ataxia. HISTORY OF PRESENT ILLNESS: Mr. Galicia is a 77-year-old male, referred to the ED by myself for evaluation of ataxia. He had history of recurrent falls at home; fell several times in past few months. He fell this morning. He has unsteady gait. He has stage III lung cancer, left upper lobe. Currently, receiving chemotherapy with carboplatin and Alimta. He received Alimta chemotherapy today in the office. He has been tolerating chemo very well. He reports pain in the left shoulder, which has been there since the diagnosis. He is on MS Contin 15 mg p.o. b.i.d. and oxycodone p.r.n. at home, also reports loss of appetite. Weight has been stable for past few weeks. No chest pain. No nausea. No vomiting. No fever. PAST MEDICAL HISTORY: Lung cancer, history of cataract, hypertension. PAST SURGICAL HISTORY: Lung biopsy, right chest port. FAMILY HISTORY: Noncontributory. PERSONAL HISTORY: Smoker, continues to smoke. No history of alcohol abuse. ALLERGIES: NO KNOWN DRUG ALLERGIES. HOME MEDICATIONS: Norvasc 5 mg daily, Elavil 25 mg p.o. at bedtime, Valtrex 500 mg daily, MS Contin 15 mg p.o. b.i.d., oxycodone 10 mg every 6 hours p.r.n. for pain. REVIEW OF SYSTEMS: As per HPI. Rest of 12-point review of systems reviewed negative. PHYSICAL EXAMINATION: GENERAL: Comfortable in bed, in no acute distress. VITAL SIGNS: Temperature 98.2, heart rate 80 per minute, respiratory rate 18 per minute, blood pressure 120/60, pulse ox is 98% on room air. HEENT: Pallor positive. NECK: No lymphadenopathy. CHEST: Air entry decreased left side. No rhonchi. No crepitations. CARDIOVASCULAR: S1, S2 normal. No murmur. No gallop. ABDOMEN: Soft, nontender. No hepatosplenomegaly. EXTREMITIES: No edema. CAT scan without contrast showed left upper lobe mass. Comparison not done with the previous CAT scan, but the mass has been stable with the treatment. MRI of the brain was done and diagnosis, which was unremarkable for metastatic lesions. LABORATORY DATA: White count 13.8, hemoglobin 9.5, hematocrit 28.6, platelets 186. Sodium 142, potassium . BUN 15, creatinine 1, glucose 158. ASSESSMENT AND PLAN: 1. Lung cancer stage III, currently on chemotherapy with carboplatin and Alimta, completed 5 cycles of chemo. Currently has stable disease as per CAT scan done today. 2. Ataxia, unsteady gait, frequent falls. Neurological versus cardiovascular. CAT scan of the head showed chronic white matter changes. MRI of the brain with and without contrast ordered. Cardiology consultation of Dr. Rangel ordered to rule out cardiac causes of syncope and recurrent falls. He is admitted on Tele monitoring. Keisha Frederick MD
--- NOTE | 2017-10-20 08:32 | RAD ---
Date of service: 10/19/2017 PROCEDURE: CHEST RADIOGRAPH, 1 VIEW HISTORY: Shortness of breath COMPARISON: 06/15/2017. FINDINGS: LUNGS: The right central venous catheter terminates at the cavoatrial junction. The lungs are well inflated and clear. PLEURA: No pneumothorax or pleural fluid seen. CARDIOVASCULAR: Normal. OSSEOUS STRUCTURES: Stable. VISUALIZED UPPER ABDOMEN: Normal. OTHER FINDINGS: None. IMPRESSION: No acute findings.
--- NOTE | 2017-10-20 08:47 | HP ---
HISTORY OF PRESENT ILLNESS: A 77-year-old white male, admitted on 10/19/2017. The patient has a history of Pancoast tumor of the left lung, history of left shoulder replacement with recurrent dislocation. The patient had been being treated with chemotherapy and recently had an episode of lightheadedness, dizziness and a fall. The patient denies any loss of consciousness. Denies any spinning of the room. Denies any nausea, vomiting, chest pain, palpitations, etc. The patient was admitted. He had a chest CT done in the emergency room, which revealed a left lung apex mass lesion extending to the left subclavian region and encasing the first left rib with left subclavian artery. There is also a lytic bone lesion and fracture of the distal portion of the right clavicle. The patient also had a head CT done without contrast, which showed left frontoparietal encephalomalacia, 5 mm chronic lacunar infarct in left basal ganglion. No evidence of metastasis. The patient is seen in bed, awake, alert. Strength is normal in the upper and lower extremities. He does have decreased breath sounds at the left lung field. He has no wheezing noted. Heart examination reveals sinus rhythm. His pupils are equal and reactive to light and accommodation. His cranial nerves II through XI are intact. He has normal reflexes bilaterally. Plan is to do oncology consultation and neurological consultation. MRI of the brain with Gadolinium. PT evaluation and white count of 13,800. Rule out early sepsis. Prolactin is ordered. BUN and creatinine are stable. Hemoglobin is 9.5. IMPRESSION: Status post near syncope and fall, lung cancer, history of cerebrovascular accident and lacunar infarcts, rule metastasis to the bone. Zafar Blackwell MD
[2017-10-20] MEDS ORDERED: Darbepoetin Alfa 100 mcg/ml Inj SC ONE (10:00)
[2017-10-20] MEDS ORDERED: NORVASC 5 MG PO SCH (10:00)
[2017-10-20 10:44] LABS: GRAN # 11.88 (1.4-6.5); GRAN % 84.1 % (50.0-68.0); HEMOGLOBIN 8.2 g/dL (14.0-18.0); LYMPH % 7.2 % (22.0-35.0); MEAN CELL VOLUME 105.6 fl (80.0-105.0); MEAN CORPUSCULAR HEMOGLOBIN 35.5 pg (25.0-35.0); MEAN CORPUSCULAR HGB CONC 33.6 g/dl (31.0-37.0); MEAN PLATELET VOLUME 10.1 fl (7.0-11.0); MONO # 1.2 (0.1-0.6); MONO % 8.7 % (1.0-6.0); RBC 2.31 10^6/uL (3.5-6.1); RED CELL DISTRIBUTION WIDTH 15.7 % (11.5-14.5); WHITE BLOOD COUNT 14.1 10^3/ul (4.5-11.0)
[2017-10-20 10:48] LABS: IRON 78 ug/dL (45-180)
[2017-10-20 10:50] LABS: ALB/GLOB RATIO 1.2 (1.1-1.8); ALBUMIN 3.5 g/dL (3.0-4.8); ALT/SGPT 11 U/L (7-56); AST/SGOT 27 U/L (17-59); BLOOD UREA NITROGEN 17 mg/dL (7-21); CALCIUM 9.5 mg/dL (8.4-10.5); GFR NON-AFRICAN AMERICAN > 60
[2017-10-20 10:57] LABS: % IRON SATURATION 29 % (20-55); TOTAL IRON BINDING CAPACITY 264 ug/dL (261-462)
[2017-10-20 11:02] LABS: TROPONIN I 0.03 ng/mL
[2017-10-20 11:07] LABS: FREE T4 0.99 ng/dL (0.78-2.19)
--- NOTE | 2017-10-20 11:18 | CON ---
DATE: 10/20/2017 BRIEF CLINICAL HISTORY: This is a 77-year-old male with past medical history significant for lung cancer, Pancoast tumor of the lung, history of left shoulder replacement with recurrent dislocation, history of CVA in the past, lacunar infarct, who said who fell down. Denies any chest pain. Denies any shortness of breath. Denies any loss of consciousness. Denies any syncope. PAST MEDICAL HISTORY: Past history significant for hypertension, lung CA, history of recurrent shoulder dislocation, history of CVA. SOCIAL HISTORY: Denies smoking. Denies any history of alcohol abuse, quit many years ago. CURRENT MEDICATIONS: The patient is taking prednisone 10 mg daily, Norvasc 5 mg daily, Mobic 15 mg daily, losartan 100 mg daily, Elavil 25 mg daily, acetaminophen. ALLERGIES: NO KNOWN DRUG ALLERGY. The patient had last chemo this morning. REVIEW OF SYSTEMS: As per HPI. PHYSICAL EXAMINATION: VITAL SIGNS: Height of the patient 5 feet 9 inches, weight of the patient 145 pounds, body mass index 21.4 kg/m2. Rest of the vitals, temperature afebrile, heart rate 93, blood pressure 136/70. HEENT: PERRLA. Extraocular muscles intact. NECK: Supple. No carotid bruit. No thyromegaly. CHEST: Clear to auscultation. HEART: S1 and S2 regular. ABDOMEN: Soft. EXTREMITIES: Clubbing and cyanosis negative. LABORATORY DATA: Blood workup as follows; WBC , hemoglobin 8.2, hematocrit 24.4, platelet count 180. Chemistry shows sodium 141, potassium 4, chloride 108, carbon dioxide 26, anion gap of 12, BUN 17, creatinine 1.1. IMPRESSION: A 77-year-old male with past medical history significant for lung cancer, Pancoast tumor, history of cerebrovascular accident, history of hypertension, hyperlipidemia. Admitted after a fall. Denies any loss of consciousness. History of lung cancer, history of cerebrovascular accident, history of recent chemotherapy. Yesterday, the patient had a chemotherapy. RECOMMENDATION: Rule out orthostatic hypotension. Unsteady gait. I will get echo to rule out any structural heart disease. We will also do lipid profile, TSH and hemoglobin A1c. Further recommendations during the hospital course. We will follow with you. Thank you, Dr. Blackwell for providing us the opportunity in taking care of the patient, Russel Galicia. Timothy Rangel MD
--- NOTE | 2017-10-20 14:11 | CON ---
DATE: 10/20/2017 HISTORY OF PRESENT ILLNESS: This is a 77-year-old white male with a past medical history of lung cancer and Pancoast tumor of the lung and history of CVA in the past, lacunar infarct in the basal ganglia and frontoparietal encephalomalacia and came to the hospital with gait difficulty. Patient fell and hit his head. PAST MEDICAL HISTORY: Hypertension, lung CA and recurrent shoulder dislocation and history of CVA. SOCIAL HISTORY: Does not smoke, does not drink. CURRENT MEDICATIONS: Norvasc, Mobic, losartan and Elavil. ALLERGIES: NO KNOWN DRUG ALLERGIES. REVIEW OF SYSTEMS: A 10-point review of system was negative. PHYSICAL EXAMINATION: VITAL SIGNS: Blood pressure 136/70. HEENT: Normocephalic, atraumatic. NECK: Supple. NEUROLOGIC: Awake, oriented to self. Cranial nerve II through XII were tested. Pupils reactive. EOM intact. Visual field full. No facial asymmetry. Tongue midline. Motor examination: Moves all the extremities equally. Tone normal. Deep tendon reflexes are 1+. Both plantars are downgoing. Sensory appears intact. Cerebellar, gait deferred. IMPRESSION: A 77-year-old with a past medical history of lung cancer and cerebrovascular accident and history of hypertension, hyperlipidemia was admitted following a fall and his legs gave out and the patient is under treatment for lung cancer. 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 CAT scan of the head, only old basal ganglia infarct. No bleed. Continue present management. We will follow up. Shakeel Strange MD
--- NOTE | 2017-10-20 14:28 | CP.PCM.PCO ---
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
[2017-10-20 16:56] LABS: FOLATE > 20.0 ng/mL
--- NOTE | 2017-10-20 22:48 | CARD ---
APPROVED REPORT Date of service: 10/20/2017 INDICATION LUNG CA,S/P CHEMO. PROCEDURE The above named patient recieved 21.4 millicuries of Tc99m tagged red blood cells intravenously. After achieving equilibrium, gated imaging of 16/frame/cycle was performed utillizing Gamma camera interfaced with a digital computer and gated device. Gated imaging was then performed in the left anterior oblique, anterior, and the left lateral projections. Findings Left Ventricle: The quality of the study is good. The left ventricle is mildly enlarged in size. The right ventricle is normal in size. Wall motion study shows good contractility of the left ventricle. RV wall motion is normal. The right atrium is dynamic.. The left atrium is prominent. The remainder of the study is unremarkable. Impressions Normal gated wall motion of left ventricle wall. LVEF = 73%. Normal RV wall motion. Prominent left atrium.
--- NOTE | 2017-10-21 07:25 | CP.PCM.PN ---
Subjective - Date & Time of Evaluation Date of Evaluation: 10/21/17 Time of Evaluation: 06:20 - Subjective Subjective: Awake, alert, no distress,denies shortness of breath or chest pain Reason for consultation and follow up: Cardiac evaluation of possible syncopal episode, History of gait imbalance,fall, hypertension. Seen and examined by me and Dr. Juan Carlos braun Objective - Vital Signs/Intake and Output Vital Signs (last 24 hours): Temp Pulse Resp BP Pulse Ox 99.2 F 58 L 20 162/61 H 95 10/21/17 06:00 10/21/17 06:00 10/21/17 06:00 10/21/17 06:00 10/21/17 06:00 Intake and Output: 10/21/17 10/21/17 06:59 18:59 Intake Total 240 Balance 240 - Medications Medications: Current Medications Amitriptyline HCl (Elavil) 25 mg PO HS [facility] Last Admin: 10/20/17 22:34 Dose: Not Given Amlodipine Besylate (Norvasc) 5 mg PO DAILY [facility] Last Admin: 10/20/17 10:40 Dose: 5 mg Losartan Potassium (Cozaar) 100 mg PO DAILY [facility] Last Admin: 10/20/17 10:40 Dose: 100 mg Oxycodone HCl (Oxycodone Immediate Release Tab) 10 mg PO Q4 PRN PRN Reason: Pain, moderate (4-7) Valacyclovir HCl (Valtrex) 500 mg PO DAILY [facility] PRN Reason: Protocol Last Admin: 10/20/17 10:40 Dose: 500 mg - Labs Labs: PT 12.5 SECONDS (9.4-12.5) 10/19/17 16:06 INR 1.09 10/19/17 16:06 APTT 28.4 Seconds (25.1-36.5) 10/19/17 16:06 - Constitutional Appears: No Acute Distress - Eye Exam Eye Exam: Normal appearance - ENT Exam ENT Exam: Mucous Membranes Moist - Respiratory Exam Respiratory Exam: Decreased Breath Sounds, Clear to Ausculation Bilateral, NORMAL BREATHING PATTERN - Cardiovascular Exam Cardiovascular Exam: +S1, +S2 - GI/Abdominal Exam GI & Abdominal Exam: Soft, Normal Bowel Sounds - Extremities Exam Extremities Exam: Full ROM - Neurological Exam Neurological Exam: Alert, Awake, Oriented x3 - Psychiatric Exam Psychiatric exam: Normal Affect - Skin Skin Exam: Dry, Warm Assessment and Plan - Assessment and Plan (Free Text) Assessment: A 77 year old male who came in to the ER due to weakness and unsteady gait. He claimed that his legs gave up and fell. denies loss of consciousness. History of lung cancer on chemotherapy (last treatment 10/20/17) CVA,left shoulder replacement,hypertension.Rule out orthostatic hypotension, Unsteady gait. Plan: MUGA scan done- Normal wall motion LVEF 73 %, Normal RV Stable heart rate and blood pressure Cardiac status stable Neuro on consult Continue current treatment Continue current medications Will follow up Plan and treatment discussed with Dr. Rangel
[2017-10-21 08:31] LABS: URINE APPEARANCE CLEAR (CLEAR); URINE BILIRUBIN NEGATIVE (NEGATIVE); URINE BLOOD NEGATIVE (NEGATIVE); URINE COLOR YELLOW (YELLOW); URINE GLUCOSE (UA) NEGATIVE (NEGATIVE); URINE LEUKOCYTE ESTERASE NEGATIVE Leu/uL (NEGATIVE); URINE PROTEIN NEGATIVE mg/dL (<30 mg/dL); URINE UROBILINOGEN 0.2 E.U./dL (<1 E.U./dL)
[2017-10-21] MEDS ORDERED: Gadodiamide 287 MG/ML VIAL (15ML) IV ONE (10:04)
--- NOTE | 2017-10-21 11:03 | MRI ---
Date of service: 10/21/2017 PROCEDURE: MRI BRAIN WITH AND WITHOUT CONTRAST HISTORY: ataxia,r/o brain mets COMPARISON: Noncontrast MRI 06/12/2017 TECHNIQUE: Multiplanar, multisequence MR images of the brain were obtained with and without intravenous contrast enhancement. 15 cc of Omniscan FINDINGS: HEMORRHAGE: None DWI: No evidence of an acute or early subacute infarction. BRAIN PARENCHYMA: Enhancing lesions are seen in the cerebellar hemispheres bilaterally with associated vasogenic edema. On the left side the lesion measures 13 x 20 mm and is seen along the anterior surface of the cerebellar hemisphere adjacent to the medulla. The right-sided lesion is near the tentorium and measures 12 x 16 mm. There are no lesions seen above the tentorium. There is an area of chronic encephalomalacia in the left posterior frontal lobe. There is also an area of chronic encephalomalacia in the right temporal lobe. ENHANCEMENT: As above VENTRICLES: Unremarkable. No hydrocephalus. CRANIUM: Unremarkable. ORBITS: Grossly unremarkable. PARANASAL SINUSES/MASTOIDS: Clear VASCULAR SYSTEM: Skull base flow voids intact. OTHER FINDINGS: Findings were discussed with Trudy Guaman at 10:55 a.m.. IMPRESSION: Enhancing metastatic lesions in both cerebellar hemispheres with moderate surrounding vasogenic edema.
--- NOTE | 2017-10-21 11:24 | CP.PCM.PCO ---
Assessment & Plan - Assessment and Plan (Free Text) Assessment: NEURO COMMUNICATION: MRI BRAIN REVIEWED SHOWING BILATERAL ENHANCING METASTATIC CEREBELLAR LESIONS WHICH IS CAUSING WORSENING ATAXIA ON TOP OF HIS NEUROPATHY FROM CANCER. -DECADRON 4MG 1 Q6 HR - RADIATION ONCOLOGY CONSULT. - ONCOLOGY FOLLOW UP -PT EVALUATION. THANKS. Carlita BRUCE MD.
[2017-10-21] MEDS: Dexamethasone 4 mg/1 ml IVP SCH ×4 (11:28→23:04)
--- NOTE | 2017-10-21 11:58 | PN ---
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 The patient is refusing physical therapy and occupational therapy, refusing TCU. The patient is awaiting an MRI of the brain today to rule out other metastatic disease. Pending MRI results, the patient will be possibly discharged home today. Physical examination is unchanged. The patient is awake and alert, oriented x3. His strength is improved. He still has poor balance. PLAN: As above. Zafar Blackwell MD
--- NOTE | 2017-10-21 12:38 | CP.PCM.CON ---
History of Present Illness - History of Present Illness History of Present Illness: Mr Galicia is a 77 year old male with a history of a locally advanced pancoast tumor now with brain metastases. We initially saw him in consultation in June 2017. At the time, he was also seen by Dr Frederick who wanted to proceed with chemotherapy first. He has been actively getting chemotherapy. He received carboplatin and alimta. Most recently, he was admitted to [facility] with unsteady gait with a couple of falls. He denies any headaches, nausea or vomiting. A CT of the head on October 19, 2017 revealed no obvious findings aside from a 5mm chronic lacunar infarct. A CT of the chest revealed left upper lung lesion extension to the left subclavian region and encasing the left 1st rib and subclavian artery. There were lytic bony lesions at the right clavicle. A MRI of the brain on October 21, 2017 revealed enhancing lesions in the cerebellar hemispheres with moderate edema. We were asked to see him for radiation therapy to whole brain. Review of Systems - Neurological Neurological: Dizziness, Focal Weakness Past Patient History - Infectious Disease Hx of Infectious Diseases: None - Past Social History Smoking Status: Heavy Smoker > 10 Cigarettes Daily Home Situation {Lives}: With Family - CARDIAC Hx Hypertension: Yes - PULMONARY Hx Respiratory Disorders: Yes (hx lung ca) - NEUROLOGICAL HX Cerebrovascular Accident: Yes - HEENT Hx HEENT Problems: Yes (eyeglasses) Hx Cataracts: Yes (b/l sx) - RENAL Hx Chronic Kidney Disease: No - ENDOCRINE/METABOLIC Hx Endocrine Disorders: No - HEMATOLOGICAL/ONCOLOGICAL Hx Blood Disorders: Yes (b12 deficiency) Hx Cancer: Yes (lung ca, left upper lobe mass/recent dx) Hx Chemotherapy: Yes (had chemo this am) Other/Comment: skin ca on chest - INTEGUMENTARY Hx Dermatological Problems: Yes (skin ca removed from chest) Other/Comment: generalized dry skin thick toenails - MUSCULOSKELETAL/RHEUMATOLOGICAL Hx Falls: Yes (recent frequent) - GASTROINTESTINAL Hx Gastrointestinal Disorders: No - GENITOURINARY/GYNECOLOGICAL Hx Genitourinary Disorders: No - PSYCHIATRIC Hx Substance Use: No - SURGICAL HISTORY Hx Surgeries: Yes Other/Comment: right chest port 06/2017, r shoulder sx x2 cervical fusion, left shoulder replacement - ANESTHESIA Hx Anesthesia Reactions: No Hx Malignant Hyperthermia: No Meds Allergies/Adverse Reactions: Allergies Allergy/AdvReac Type Severity Reaction Status Date / Time No Known Allergies Allergy Verified 10/19/17 15:12 - Medications Medications: Current Medications Amitriptyline HCl (Elavil) 25 mg PO HS [facility] Last Admin: 10/20/17 22:34 Dose: Not Given Amlodipine Besylate (Norvasc) 5 mg PO DAILY [facility] Last Admin: 10/21/17 11:29 Dose: 5 mg Dexamethasone (Decadron Inj) 4 mg IVP Q6 [facility] Last Admin: 10/21/17 12:23 Dose: Not Given Losartan Potassium (Cozaar) 100 mg PO DAILY [facility] Last Admin: 10/21/17 11:29 Dose: 100 mg Oxycodone HCl (Oxycodone Immediate Release Tab) 10 mg PO Q4 PRN PRN Reason: Pain, moderate (4-7) Physical Exam - ENT Exam ENT Exam: Mucous Membranes Moist - Respiratory Exam Respiratory Exam: Clear to Auscultation Bilateral - Cardiovascular Exam Cardiovascular Exam: REGULAR RHYTHM - GI/Abdominal Exam GI & Abdominal Exam: Normal Bowel Sounds - Neurological Exam Neurological exam: CN II-XII Intact, Oriented x3 Additional comments: 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 Results - Vital Signs Recent Vital Signs: Last Vital Signs Temp 98.9 F 10/21/17 12:00 Pulse 61 10/21/17 12:00 Resp 19 10/21/17 12:00 BP 137/58 L 10/21/17 12:00 Pulse Ox 95 10/21/17 06:00 - Labs Result Diagrams: 10/20/17 10:30 10/20/17 10:30 Labs: Laboratory Results - last 24 hr 10/21/17 10/21/17 10/21/17 06:30 06:30 08:00 Hemoglobin A1c 5.1 Phosphorus 3.8 Magnesium 2.0 Triglycerides 63 Cholesterol 130 LDL Cholesterol Direct 54 HDL Cholesterol 47 Urine Color Yellow Urine Appearance Clear Urine pH 6.0 Ur Specific [place] 1.015 Urine Protein Negative Urine Glucose (UA) Negative Urine Ketones Negative Urine Blood Negative Urine Nitrate Negative Urine Bilirubin Negative Urine Urobilinogen 0.2 Ur Leukocyte Esterase Negative Assessment & Plan - Assessment and Plan (Free Text) Assessment: Mr Galicia is a 77 year old gentleman with a history of a left upper lung cancer now with brain metastases. He is currently on decadron. We would concur that he would benefit from palliative whole brain radiation therapy. We spoke to him and his family about the radiation therapy. Informed consent was obtained. We will simulate him today, and start as soon as possible.
--- NOTE | 2017-10-21 17:19 | PN ---
DATE: 10/21/2017 NEUROLOGY FOLLOWUP CHIEF COMPLAINT: Followup for gait dysfunction. SUBJECTIVE: The patient is seen and examined on the bedside. He underwent an MRI of the brain, which showed enhancing lesion of the cerebellar hemisphere with moderate edema, which is enhanced and which is now he has been placed on Decadron 4 mg IV every 6 for the focal edema and Radiation/Oncology has seen the patient, who recommended whole brain radiation which I agreed with. Likely, his worsening ataxia is secondary to the bilateral cerebellar enhancing metastatic mass from the Pancoast tumor, superimposed underlying cancer-related neuropathy. PAST MEDICAL HISTORY: History of advanced Pancoast tumor, history of chronic lacunar infarct, history of hypertension, dyslipidemia, B12 deficiency. REVIEW OF SYSTEMS: Fourteen-point review of systems is negative except as per the HPI. ALLERGIES: NO KNOWN DRUG ALLERGIES. MEDICATIONS: Reviewed by nurses' reconciliation sheet. SOCIAL HISTORY: Currently, no smoking, no drinking, no EtOH abuse. FAMILY HISTORY: Noncontributory. LABORATORY DATA: Today's labs are A1c is 5.1 and triglycerides 63, cholesterol is 130, LDL 54. PHYSICAL EXAMINATION: VITAL SIGNS: Temperature 98.7, pulse rate of 60, blood pressure 160/67, respiratory rate of 16, oxygen saturation 94% by nasal cannula. GENERAL: The patient is sitting up in bed, resting, in no acute distress. HEENT: Atraumatic, normocephalic. PERRLA. Extraocular muscles intact. NECK: Supple. No JVD, no adenopathy noted. LUNGS: Decreased breath sounds bilaterally. HEART: S1, S2. Normal rate and rhythm. No murmurs, rubs or gallops. ABDOMEN: Soft, nontender. Bowel sounds are present. EXTREMITIES: No clubbing. No cyanosis. Peripheral pulses are 2+ felt bilaterally. NEUROLOGIC: The patient is alert and oriented to person and place and year. Recall after 5 minutes is 0/3. Poor attention span. Slow thought process. Very lethargic and cachectic looking. Cranial nerves II through XII intact. Speech: There is no aphasia. Motor exam: Slightly increased tone throughout. Very deconditioned. Moves all extremities. No pronator drift seen. Sensory exam: Decreased light touch and pinprick up to the calves bilaterally. Decreased vibration of the toes. DTRs are 2+ throughout and 1 at both knees and ankles. Coordination: There is dysmetria of [id number] and consistent with the cerebellar mass-like lesions. Gait is deferred for now. IMPRESSION: Ataxia, likely secondary to bilateral cerebellar metastatic lesions, which were enhancing, superimposed underlying cancer-related neuropathy. At this time, I recommend, 1. Decadron 4 mg IV every 6 for the enhancing edema. 2. Follow with Dr. Gina Jain, Radiation/Oncology for whole brain radiation and will get targeted therapy. 3. Oncology followup is ongoing. 4. Physical Therapy/Occupational Therapy evaluation for reconditioning and gait and balance exercises. 5. So far his anti-Hu antibodies in the past were negative for any paraneoplastic neuropathy, but it does have neuropathy from underlying related chemotherapy and cancer itself. We will recommend for acute or subacute rehab after focused radiation therapy. Kiran Strange MD
--- NOTE | 2017-10-21 23:57 | CP.PCM.PN ---
Subjective - Date & Time of Evaluation Date of Evaluation: 10/21/17 Time of Evaluation: 08:00 - Subjective Subjective: He is comfortable in bed. gait unsteady. H/O recurrent falls at home. MRI of brain done today showed bilateral cerebellar metastatic lesions with surrounding edema. No fever , cough. S/P 4 cycles of chemotherapy with carboplatin Alimta. Tolerated well. Objective - Vital Signs/Intake and Output Vital Signs (last 24 hours): Temp Pulse Resp BP Pulse Ox 98.7 F 60 16 168/67 H 94 L 10/21/17 13:10 10/21/17 13:10 10/21/17 13:10 10/21/17 13:10 10/21/17 13:10 Intake and Output: 10/21/17 10/22/17 18:59 06:59 Intake Total 0 Balance 0 - Medications Medications: Current Medications Amitriptyline HCl (Elavil) 25 mg PO HS [facility] Last Admin: 10/21/17 23:04 Dose: 25 mg Amlodipine Besylate (Norvasc) 5 mg PO DAILY [facility] Last Admin: 10/21/17 11:29 Dose: 5 mg Dexamethasone (Decadron Inj) 4 mg IVP Q6 [facility] Last Admin: 10/21/17 23:04 Dose: 4 mg Losartan Potassium (Cozaar) 100 mg PO DAILY [facility] Last Admin: 10/21/17 11:29 Dose: 100 mg Oxycodone HCl (Oxycodone Immediate Release Tab) 10 mg PO Q4 PRN PRN Reason: Pain, moderate (4-7) - Labs Labs: PT 12.5 SECONDS (9.4-12.5) 10/19/17 16:06 INR 1.09 10/19/17 16:06 APTT 28.4 Seconds (25.1-36.5) 10/19/17 16:06 - Constitutional Appears: Well, Non-toxic - Head Exam Head Exam: ATRAUMATIC, NORMAL INSPECTION, NORMOCEPHALIC - Eye Exam Eye Exam: Normal appearance - ENT Exam ENT Exam: Mucous Membranes Moist, Normal Exam - Neck Exam Neck Exam: Normal Inspection - Respiratory Exam Respiratory Exam: Clear to Ausculation Bilateral, NORMAL BREATHING PATTERN - GI/Abdominal Exam GI & Abdominal Exam: Soft, Normal Bowel Sounds - Extremities Exam Extremities Exam: Normal Inspection - Back Exam Back Exam: NORMAL INSPECTION - Neurological Exam Neurological Exam: Alert, Awake, CN II-XII Intact Additional comments: gait unsteady. - Skin Skin Exam: Normal Color, Warm Assessment and Plan - Assessment and Plan (Free Text) Assessment: 1. Lung Cancer stage III left upper lobe. S/P 4 cycles of chemotherapy with alimta/carboplatin. Tumor PDL-1 80% positive. Will consider immunotherapy with Keytruda after radiation to brain. 2. New cerebellar metastatic lesions : decadran 4 mg IV Q 6hrs. protonix 40 mg IV daily. Radiation oncology consult. discussed with Dr. Can. 3. renal : normal renal functions. 4. Blood counts stable. 5. PT bedside. TCU eval. discussed with daughter Ms. Real. She agreed with radiation and continuation of treatment, Thank you Dr. Blackwell for allowing us to participate in his care.
[2017-10-22] MEDS: Dexamethasone 4 mg/1 ml IVP SCH ×3 (06:51→18:28)
--- NOTE | 2017-10-22 07:37 | CP.PCM.PN ---
Subjective - Date & Time of Evaluation Date of Evaluation: 10/22/17 Time of Evaluation: 07:00 - Subjective Subjective: No distress,denies shortness of breath or chest pain, awake Reason for consultation and follow up: Cardiac evaluation of possible syncopal episode, History of gait imbalance,fall, hypertension.Rule out orthostatic hypotension. Seen and examined by me and Dr. Rangel Objective - Vital Signs/Intake and Output Vital Signs (last 24 hours): Temp Pulse Resp BP Pulse Ox 98.7 F 51 L 18 114/56 L 97 10/21/17 22:00 10/21/17 22:00 10/21/17 22:00 10/21/17 22:00 10/21/17 22:00 Intake and Output: 10/22/17 10/22/17 06:59 18:59 Intake Total 0 Balance 0 - Medications Medications: Current Medications Amitriptyline HCl (Elavil) 25 mg PO HS [facility] Last Admin: 10/21/17 23:04 Dose: 25 mg Amlodipine Besylate (Norvasc) 5 mg PO DAILY [facility] Last Admin: 10/21/17 11:29 Dose: 5 mg Dexamethasone (Decadron Inj) 4 mg IVP Q6 [facility] Last Admin: 10/22/17 06:51 Dose: 4 mg Losartan Potassium (Cozaar) 100 mg PO DAILY [facility] Last Admin: 10/21/17 11:29 Dose: 100 mg Oxycodone HCl (Oxycodone Immediate Release Tab) 10 mg PO Q4 PRN PRN Reason: Pain, moderate (4-7) - Labs Labs: PT 12.5 SECONDS (9.4-12.5) 10/19/17 16:06 INR 1.09 10/19/17 16:06 APTT 28.4 Seconds (25.1-36.5) 10/19/17 16:06 - Constitutional Appears: No Acute Distress - Eye Exam Eye Exam: Normal appearance - ENT Exam ENT Exam: Mucous Membranes Moist - Respiratory Exam Respiratory Exam: Decreased Breath Sounds, Clear to Ausculation Bilateral, NORMAL BREATHING PATTERN - Cardiovascular Exam Cardiovascular Exam: +S1, +S2 - GI/Abdominal Exam GI & Abdominal Exam: Soft, Normal Bowel Sounds - Extremities Exam Extremities Exam: Normal Capillary Refill - Neurological Exam Neurological Exam: Alert, Awake, Oriented x3 - Psychiatric Exam Psychiatric exam: Normal Affect - Skin Skin Exam: Dry, Warm Assessment and Plan - Assessment and Plan (Free Text) Assessment: A 77 year old male who came in to the ER due to weakness and unsteady gait. He claimed that his legs gave up and fell. denies loss of consciousness. History of lung cancer on chemotherapy (last treatment 10/20/17) CVA,left shoulder replacement,hypertension.Rule out orthostatic hypotension, Unsteady gait due to bilateral enhancing metastatic cerebellar lesions (MRI of brain 10/21/17). Radiation oncology consulted. MUGA scan done- Normal wall motion LVEF 73 %, Normal RV Plan: Cardiac status stable Stable heart rate and blood pressure Neuro on consult Metastatic cerebellar lesions (MRI of Brain) Radiation oncology on consult Continue current treatment Continue current medications Will follow up Plan and treatment discussed with Dr. Rangel
[2017-10-22] MEDS: Pantoprazole 40 mg EC Tab PO SCH (09:30)
--- NOTE | 2017-10-22 10:39 | PN ---
DATE: 10/22/2017 SUBJECTIVE: A 77-year-old white male with metastatic lung CA, A Pancoast tumor in the left upper lobe. Now found to have change in mental status, confusion, disorientation and balance problems. The patient had MRI with contrast, which showed metastatic cerebral metastasis. The patient was seen by Dr. Jain, Radiation/Oncology to start radiation therapy. The patient is stable. The patient does complain of chronic pain in the left shoulder. We will start him on a Duragesic patch and follow with Dr. Jain and will be discharged once the radiation is started and the patient has a decreased fall risk. Zafar Blackwell MD
[2017-10-22 10:40] LABS: GRAN # 10.31 (1.4-6.5); GRAN % 94.7 % (50.0-68.0); HEMOGLOBIN 9.7 g/dL (14.0-18.0); LYMPH # 0.6 (1.2-3.4); LYMPH % 5.1 % (22.0-35.0); MEAN CELL VOLUME 104.8 fl (80.0-105.0); MEAN CORPUSCULAR HEMOGLOBIN 36.1 pg (25.0-35.0); MEAN CORPUSCULAR HGB CONC 34.4 g/dl (31.0-37.0); MEAN PLATELET VOLUME 10.2 fl (7.0-11.0); MONO % 0.2 % (1.0-6.0); RBC 2.69 10^6/uL (3.5-6.1); RED CELL DISTRIBUTION WIDTH 14.9 % (11.5-14.5); WHITE BLOOD COUNT 10.9 10^3/ul (4.5-11.0)
[2017-10-22 11:03] LABS: BLOOD UREA NITROGEN 23 mg/dL (7-21); CALCIUM 9.7 mg/dL (8.4-10.5); GFR NON-AFRICAN AMERICAN > 60
[2017-10-22] MEDS: Lidocaine 5% Patch TD SCH (11:05)
[2017-10-23] MEDS: Dexamethasone 4 mg/1 ml IVP SCH ×4 (00:50→18:37)
[2017-10-23] MEDS: Pantoprazole 40 mg EC Tab PO SCH (05:54)
--- NOTE | 2017-10-23 07:04 | CP.PCM.PN ---
Subjective - Date & Time of Evaluation Date of Evaluation: 10/23/17 Time of Evaluation: 06:15 - Subjective Subjective: Awake, no distress,lying in bed Reason for consultation and follow up: Cardiac evaluation of possible syncopal episode, History of gait imbalance,fall, hypertension.Rule out orthostatic hypotension. Seen and examined by me and Dr. Rangel Objective - Vital Signs/Intake and Output Vital Signs (last 24 hours): Temp Pulse Resp BP Pulse Ox 98.5 F 70 18 122/57 L 96 10/22/17 22:35 10/22/17 22:35 10/22/17 22:35 10/22/17 22:35 10/22/17 22:35 - Medications Medications: Current Medications Amitriptyline HCl (Elavil) 25 mg PO HS [facility] Last Admin: 10/22/17 21:48 Dose: 25 mg Amlodipine Besylate (Norvasc) 5 mg PO DAILY [facility] Last Admin: 10/22/17 11:05 Dose: 5 mg Dexamethasone (Decadron Inj) 4 mg IVP Q6 [facility] Last Admin: 10/23/17 05:54 Dose: 4 mg Lidocaine (Lidoderm) 1 ea TD DAILY [facility] Last Admin: 10/22/17 11:05 Dose: 1 ea Losartan Potassium (Cozaar) 100 mg PO DAILY [facility] Last Admin: 10/22/17 11:05 Dose: 100 mg Oxycodone HCl (Oxycodone Immediate Release Tab) 10 mg PO Q4 PRN PRN Reason: Pain, moderate (4-7) Pantoprazole Sodium (Protonix Ec Tab) 40 mg PO 0600 [facility] Last Admin: 10/23/17 05:54 Dose: 40 mg - Labs Labs: 10/22/17 10:30 10/22/17 13:30 PT 12.5 SECONDS (9.4-12.5) 10/19/17 16:06 INR 1.09 10/19/17 16:06 APTT 28.4 Seconds (25.1-36.5) 10/19/17 16:06 - Constitutional Appears: No Acute Distress - Eye Exam Eye Exam: Normal appearance - ENT Exam ENT Exam: Mucous Membranes Moist - Respiratory Exam Respiratory Exam: Decreased Breath Sounds, Clear to Ausculation Bilateral, NORMAL BREATHING PATTERN - Cardiovascular Exam Cardiovascular Exam: +S1, +S2 - GI/Abdominal Exam GI & Abdominal Exam: Soft, Normal Bowel Sounds - Neurological Exam Neurological Exam: Alert, Awake, Oriented x3 - Psychiatric Exam Psychiatric exam: Normal Affect - Skin Skin Exam: Dry, Warm Assessment and Plan - Assessment and Plan (Free Text) Assessment: A 77 year old male who came in to the ER due to weakness and unsteady gait. He claimed that his legs gave up and fell. denies loss of consciousness. History of lung cancer on chemotherapy (last treatment 10/20/17) CVA,left shoulder replacement,hypertension.Rule out orthostatic hypotension, Unsteady gait due to bilateral enhancing metastatic cerebellar lesions (MRI of brain 10/21/17). Radiation oncology consulted. MUGA scan done- Normal wall motion, LVEF 73 %, Normal RV Plan: No distress, no complaints Stable heart rate and blood pressure Cardiac status stable Neuro on consult Metastatic cerebellar lesions (MRI of Brain) Radiation oncology on consult For radiation therapy Continue current treatment Continue current medications Fall precaution Will follow up Plan and treatment discussed with Dr. Rangel
[2017-10-23] MEDS: Lidocaine 5% Patch TD SCH (10:52)
--- NOTE | 2017-10-23 14:16 | PN ---
DATE: 10/23/2017 SUBJECTIVE: A 77-year-old white male admitted to the hospital with multiple falls and ataxia. The patient was found to have started radiation therapy with Dr. Jain yesterday. Tolerated procedure well. The patient's vital signs are stable. We will have no other treatment today and possible discharge home after his treatment today, to be followed to continue treatment started on Thursday. PHYSICAL EXAMINATION: Unchanged. The patient is awake and oriented x3. Tolerates his radiation therapy fine. We will discuss with Oncology and Oncological Radiology and possible discharge after his treatment today. Zafar Blackwell MD
[2017-10-24] MEDS: Dexamethasone 4 mg/1 ml IVP SCH ×3 (00:01→12:45)
[2017-10-24] MEDS: Pantoprazole 40 mg EC Tab PO SCH (05:41)
[2017-10-24 09:01] VITALS: PULSE 63; RESP 20; TEMP 98; O2SAT 97
[2017-10-24] MEDS: Lidocaine 5% Patch TD SCH (10:37)
[2017-10-24 10:39] VITALS: BP 132/61
--- NOTE | 2017-10-24 12:49 | PN ---
DATE: 10/24/2017 SUBJECTIVE: A 77-year-old white male admitted to the hospital with multiple falls, history of lung CA, was found to have metastatic cerebellar disease. The patient was started on radiation therapy to his brain by Dr. Jain. The patient was seen in consultation by Dr. Frederick. The patient continues to receive chemotherapy by Dr. Frederick. He still is awake and alert; however, at times continues to have poor balance. He is doing physical therapy and occupational therapy and started radiation therapy. Case was discussed with Dr. Frederick for his possible continuation of therapy at home. Zafar Blackwell MD
--- NOTE | 2017-10-26 00:39 | DS ---
HISTORY OF PRESENT ILLNESS: A 77-year-old white male, admitted with disorientation, balance disorder, multiple falls. The patient has history of a Pancoast tumor on the lung, being treated by Dr. Anderson, but the patient was found on admission to have cerebellar mets. He was seen in consultation with Dr. Jain. Started radiation therapy and physical therapy. The patient eventually did physical therapy and occupational therapy. Was able to be discharged to TCU. FINAL DISCHARGE DIAGNOSES: Pancoast tumor, hypertension, chronic obstructive pulmonary disease and cerebellar metastasis. Zafar Blackwell MD
== END 2017-10-24 15:19 | DRG 54 ==
LOC: ED 14:29 → ERH 17:36 → 2RSO 20:21 → OBSVTOIN 10-20 15:30 → 5RNO 10-21 13:17
PROVIDERS: ADMIT Internal Medicine; ATTEND Internal Medicine
PROC: 3E03305 Introduction of Other Antineoplastic into Peripheral Vein, Percutaneous Approach (ICD-10-PCS; principal; 2017-10-20)
PROC: D0Y07ZZ Contact Radiation of Brain (ICD-10-PCS; 2017-10-23)
DX: C79.31 Secondary malignant neoplasm of brain (principal); G93.6 Cerebral edema; J18.9 Pneumonia, unspecified organism; C34.12 Malignant neoplasm of upper lobe, left bronchus or lung; J44.0 Chronic obstructive pulmonary disease with (acute) lower respiratory infection; G63 Polyneuropathy in diseases classified elsewhere; R27.0 Ataxia, unspecified; I10 Essential (primary) hypertension; M54.9 Dorsalgia, unspecified; W19.XXXA Unspecified fall, initial encounter; Z92.21 Personal history of antineoplastic chemotherapy; Z86.73 Personal history of transient ischemic attack (TIA), and cerebral infarction without residual deficits; F17.200 Nicotine dependence, unspecified, uncomplicated; R29.6 Repeated falls; E78.5 Hyperlipidemia, unspecified; G62.9 Polyneuropathy, unspecified; G89.29 Other chronic pain; G93.89 Other specified disorders of brain; M89.9 Disorder of bone, unspecified; Z53.20 Procedure and treatment not carried out because of patient's decision for unspecified reasons; Z79.899 Other long term (current) drug therapy; Z85.118 Personal history of other malignant neoplasm of bronchus and lung; Z91.81 History of falling; Z96.612 Presence of left artificial shoulder joint; Z98.42 Cataract extraction status, left eye; Z98.41 Cataract extraction status, right eye; E53.8 Deficiency of other specified B group vitamins

== ENCOUNTER 2017-10-24 15:19 | Inpatient (IN) | payer OTHER ==
[2017-10-24 17:00] VITALS: BMI 20.9
[2017-10-24] MEDS ORDERED: oxyCODONE 10 mg Immediate Release Tab PO PRN (17:34)
[2017-10-24] MEDS: Dexamethasone 4 mg/1 ml IVP SCH ×2 (18:04→23:18)
[2017-10-24] MEDS ORDERED: Pneumococcal 23-Valent Vaccine IM ONE (18:38)
[2017-10-25] MEDS: Dexamethasone 4 mg/1 ml IVP SCH ×2 (06:08→12:55)
[2017-10-25] MEDS: Pantoprazole 40 mg EC Tab PO SCH (06:08)
[2017-10-25] MEDS: Lidocaine 5% Patch TD SCH (09:30)
[2017-10-25] MEDS ORDERED: Lidocaine 5% Patch TD SCH (10:00)
--- NOTE | 2017-10-25 12:18 | HP ---
HISTORY OF PRESENT ILLNESS: A 77-year-old white male, transferred from [facility]. The patient has a history of a Pancoast tumor of the left lung. The patient was recently found to have cerebellar mets. He had been falling and off balance at home. He has started radiation therapy with Dr. Jain. His oncologist is Dr. Frederick. He also has COPD from tobacco abuse and a history of lung CA. PHYSICAL EXAMINATION: GENERAL: Physical examination shows a well-developed, well-nourished white male. He does have a partially dislocated and replaced left shoulder with minimal range of motion and pain on palpation. CHEST: Clear to auscultation and percussion. HEART: Regular sinus rhythm. ABDOMEN: Benign. EXTREMITIES: Without cyanosis, clubbing or edema. NEUROLOGY: The patient is awake and alert, but his gait is slightly ataxic and his balance is poor. Zafar Blackwell MD
--- NOTE | 2017-10-26 00:36 | CON ---
DATE: 10/25/2017 CARDIOLOGY CONSULTATION REASON FOR CONSULTATION: Hypertension as well as metastatic lung CA. HISTORY OF PRESENT ILLNESS: The patient is a 77-year-old male who has a history of Pancoast tumor of the lung with recent evidence of brain metastasis on the most recent MRI four days ago, revealed enhancing metastatic lesions in both cerebellar hemispheres with moderate surrounding vasogenic edema. Patient was transferred to TCU today. He is still experiencing imbalance gait. He denies any chest pain or shortness of breath. The most recent MUGA scan revealed normal ejection fraction with normal right wall motion and prominent left atrium. MEDICATIONS: Cozaar 100 mg daily, Decadron 4 mg intravenously every 6 hours, Elavil 25 mg at bedtime, Norvasc 5 mg once a day, oxycodone 10 mg p.o. every 4 hours p.r.n. for moderate pain, Protonix 40 mg p.o. once a day. REVIEW OF SYSTEMS: No reported seizures on the floor. Patient denies any chest pain, nausea or vomiting. Patient according to nurse, still has unsteadiness. PAST MEDICAL HISTORY: 1. 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 2. Hypertension. 3. History of chest pain on admission. PHYSICAL EXAMINATION: GENERAL: The patient is an elderly male who does not appear to be in acute distress. VITAL SIGNS: Blood pressure 157/74, heart rate 93, temperature 98.1, respirations 18. HEENT: Pale conjunctivae. CHEST: Bilateral rhonchi. HEART: S1, S2 regular. ABDOMEN: Soft. EXTREMITIES: Significant muscle wasting. LABORATORY DATA: Most recent CBC from three days ago, for 10/22, white count 10.9, hemoglobin and hematocrit 9.7 and 28.2, platelet count 219,000. Most recent SMA-7 from 10/22, three days ago, sodium 139, potassium 4.1, chloride 102, CO2 of 26, glucose 178, BUN 23, creatinine 1. TSH level was below normal on 10/20 which was 0.4 and free T4 was within normal limit. DIAGNOSTIC DATA: EKG on 10/19 revealed normal sinus rhythm. Chest CT scan on the 10/19, revealed left lung apical mass, mildly decrease in size compared to previous study in 04/2017 and the mass measures 3.96 cm and the AP diameter was measuring 4.17 cm on the previous exam, it measures 2.74 cm in a transverse diameter and was measuring 3.14 cm on the previous study. ASSESSMENT: 1. Left apical lung mass with bilateral cerebellar metastasis. 2. Hypertension. 3. Unsteady gait. 4. Vasogenic cerebral edema. RECOMMENDATIONS: Continue Cozaar 100 mg oral daily, Decadron 4 mg intravenously every 6 hours, Norvasc 5 mg once a day, oxycodone 10 mg every 4 hours p.r.n., Protonix 40 mg p.o. daily. Conservative medical approach. Arthur Tinsley MD
[2017-10-26] MEDS: Pantoprazole 40 mg EC Tab PO SCH (05:34)
--- NOTE | 2017-10-26 07:47 | CP.PCM.PN ---
Subjective - Date & Time of Evaluation Date of Evaluation: 10/26/17 Time of Evaluation: 06:45 - Subjective Subjective: Awake, no distress,lying in bed Reason for consultation and follow up: Continuity of care in TCU,cardiac evaluation of possible syncopal episode, History of gait imbalance,fall, hypertension.Rule out orthostatic hypotension. Metastatic cancer to brain. Seen and examined by me and Dr. Rangel Objective - Vital Signs/Intake and Output Vital Signs (last 24 hours): Temp Pulse Resp BP Pulse Ox 97.9 F 75 18 123/60 96 10/25/17 16:00 10/25/17 16:00 10/25/17 16:00 10/25/17 16:00 10/25/17 16:00 - Medications Medications: Current Medications Amitriptyline HCl (Elavil) 25 mg PO HS [facility] Last Admin: 10/25/17 21:11 Dose: 25 mg Amlodipine Besylate (Norvasc) 5 mg PO DAILY [facility] Last Admin: 10/25/17 09:30 Dose: 5 mg Dexamethasone (Decadron) 4 mg PO BID [facility] Last Admin: 10/25/17 18:24 Dose: 4 mg Lidocaine (Lidoderm) 1 ea TD DAILY [facility] Last Admin: 10/25/17 09:30 Dose: Not Given Losartan Potassium (Cozaar) 100 mg PO DAILY [facility] Last Admin: 10/25/17 09:29 Dose: 100 mg Oxycodone HCl (Oxycodone Immediate Release Tab) 10 mg PO Q4H PRN PRN Reason: Pain, moderate (4-7) Pantoprazole Sodium (Protonix Ec Tab) 40 mg PO 0600 [facility] Last Admin: 10/26/17 05:34 Dose: 40 mg - Constitutional Appears: No Acute Distress - Eye Exam Eye Exam: Normal appearance - ENT Exam ENT Exam: Mucous Membranes Moist - Respiratory Exam Respiratory Exam: Decreased Breath Sounds, Clear to Ausculation Bilateral, NORMAL BREATHING PATTERN - Cardiovascular Exam Cardiovascular Exam: +S1, +S2 - GI/Abdominal Exam GI & Abdominal Exam: Soft, Normal Bowel Sounds - Extremities Exam Extremities Exam: Normal Capillary Refill - Neurological Exam Neurological Exam: Alert, Awake, Oriented x3 - Psychiatric Exam Psychiatric exam: Normal Affect - Skin Skin Exam: Dry, Warm Assessment and Plan - Assessment and Plan (Free Text) Assessment: Followed up in TCU for continuity of care. A 77 year old male who came in to the ER due to weakness and unsteady gait. He claimed that his legs gave up and fell. denies loss of consciousness. History of lung cancer on chemotherapy ( last treatment 10/20/17) CVA,left shoulder replacement,hypertension.Rule out orthostatic hypotension, Unsteady gait due to bilateral enhancing metastatic cerebellar lesions (MRI of brain 10/21/17). Radiation oncology consulted. MUGA scan done- Normal wall motion, LVEF 73 %, Normal RV. Transferred to TCU for reconditioning Plan: No distress, no complaints Stable heart rate and blood pressure Cardiac status stable For Physical therapy Continue current treatment Continue current medications Fall precaution Will follow up Plan and treatment discussed with Dr. Rangel
--- NOTE | 2017-10-26 07:51 | CP.PCM.PN ---
Subjective - Date & Time of Evaluation Date of Evaluation: 10/26/17 Time of Evaluation: 08:00 - Subjective Subjective: Mr Galicia has metastatic lung cancer with brain metastases. He is getting whole brain radiation. We will continue RT today Objective - Vital Signs/Intake and Output Vital Signs (last 24 hours): Temp Pulse Resp BP Pulse Ox 97.9 F 75 18 123/60 96 10/25/17 16:00 10/25/17 16:00 10/25/17 16:00 10/25/17 16:00 10/25/17 16:00 - Medications Medications: Current Medications Amitriptyline HCl (Elavil) 25 mg PO HS [facility] Last Admin: 10/25/17 21:11 Dose: 25 mg Amlodipine Besylate (Norvasc) 5 mg PO DAILY [facility] Last Admin: 10/25/17 09:30 Dose: 5 mg Dexamethasone (Decadron) 4 mg PO BID [facility] Last Admin: 10/25/17 18:24 Dose: 4 mg Lidocaine (Lidoderm) 1 ea TD DAILY [facility] Last Admin: 10/25/17 09:30 Dose: Not Given Losartan Potassium (Cozaar) 100 mg PO DAILY [facility] Last Admin: 10/25/17 09:29 Dose: 100 mg Oxycodone HCl (Oxycodone Immediate Release Tab) 10 mg PO Q4H PRN PRN Reason: Pain, moderate (4-7) Pantoprazole Sodium (Protonix Ec Tab) 40 mg PO 0600 [facility] Last Admin: 10/26/17 05:34 Dose: 40 mg
--- NOTE | 2017-10-26 09:27 | CON ---
DATE: 10/26/2017 HISTORY OF PRESENT ILLNESS: Mr. Galicia is a 77-year-old male, diagnosed with stage III iat-nobaf-firh lung cancer. He received 5 cycles of chemotherapy with carboplatin, Alimta. He developed dizziness, ataxia, recurrent falls at home. MRI of the brain showed bilateral cerebellar mets, one on each side. He was started on radiation. Currently, he is on steroid oral, 4 mg Decadron b.i.d. He states that gait has improved. He is participating in physical therapy. PAST MEDICAL HISTORY: Lung cancer, hypertension, ataxia. PAST SURGICAL HISTORY: Lung biopsy, port placement. REVIEW OF SYSTEMS: As per HPI. Rest of 12-point review of systems reviewed negative. CURRENT MEDICATIONS: Elavil 25 mg p.o. at bedtime, Norvasc 5 mg daily, Decadron 4 mg b.i.d., Lidoderm patch to the shoulder, Cozaar 100 mg daily, oxycodone 10 mg every 4 hours p.r.n., Protonix 40 mg daily. LABORATORY DATA: None current. PHYSICAL EXAMINATION: GENERAL: Comfortable in bed, in no acute distress. VITAL SIGNS: Vitals stable. Temperature 97.8, heart rate 75 per minute, blood pressure 123/60, respiratory rate 18 per minute, oxygen saturation 96% on room air. HEENT: Pallor positive. NECK: No lymphadenopathy. CHEST: Air entry present and equal, bilateral. No added sound. CARDIOVASCULAR: S1, S2 normal. No murmur. No gallop. ABDOMEN: Soft, nontender. No hepatosplenomegaly. EXTREMITY: No edema. TOOL SHARPENER: Gait ataxia. ASSESSMENT: 1. Stage IV lung cancer, brain mets. 2. Pain in left shoulder. 3. Hypertension. PLAN: He is currently undergoing radiation to the brain. Undergoing physical therapy. He is on oral steroid, Decadron 4 mg p.o. b.i.d. We will wean the steroid next week. Continue Protonix 40 mg daily. We will add Bactrim DS one tablet p.o. b.i.d. for PCP prophylaxis because of high-dose steroids and lung mass. He want to be discharged home. We will discuss with Dr. Blackwell for discharge planning. No signs of infection. Appetite good. Keisha Frederick MD [facility] # [id number]
[2017-10-26] MEDS: Tmp-Smz 800 mg-160 mg DS Tab PO SCH ×2 (09:57→17:51)
[2017-10-26] MEDS: Lidocaine 5% Patch TD SCH (10:01)
--- NOTE | 2017-10-26 11:45 | DS ---
HISTORY OF PRESENT ILLNESS: A 77-year-old white male, the patient has a Pancoast tumor of the lung, status post chemotherapy. He developed change in mental status, confusion, disorientation and falling. An MRI showed extensive cerebellar metastases. He is receiving radiation therapy, he is tolerating it well. He is doing better with physical therapy and occupational therapy. The patient will be discharged home in improved condition on p.o. Decadron. 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 Zafar Blackwell MD
[2017-10-27] MEDS: Pantoprazole 40 mg EC Tab PO SCH (05:31)
--- NOTE | 2017-10-27 07:28 | CP.PCM.PN ---
Subjective - Date & Time of Evaluation Date of Evaluation: 10/27/17 Time of Evaluation: 07:10 - Subjective Subjective: Awake, no distress,lying in bed, wanted to go home Reason for consultation and follow up: Continuity of care in TCU,cardiac evaluation of possible syncopal episode, History of gait imbalance,fall, hypertension.Rule out orthostatic hypotension. Metastatic cancer to brain. Seen and examined by me and Dr. Rangel Objective - Vital Signs/Intake and Output Vital Signs (last 24 hours): Temp Pulse Resp BP Pulse Ox 99 F 76 16 116/55 L 95 10/26/17 16:00 10/26/17 16:00 10/26/17 16:00 10/26/17 16:00 10/26/17 16:00 - Medications Medications: Current Medications Amitriptyline HCl (Elavil) 25 mg PO HS [facility] Last Admin: 10/26/17 21:42 Dose: 25 mg Amlodipine Besylate (Norvasc) 5 mg PO DAILY [facility] Last Admin: 10/26/17 09:59 Dose: 5 mg Dexamethasone (Decadron) 4 mg PO BID [facility] Last Admin: 10/26/17 17:51 Dose: 4 mg Lidocaine (Lidoderm) 1 ea TD DAILY [facility] Last Admin: 10/26/17 10:01 Dose: Not Given Losartan Potassium (Cozaar) 100 mg PO DAILY [facility] Last Admin: 10/26/17 09:58 Dose: 100 mg Oxycodone HCl (Oxycodone Immediate Release Tab) 10 mg PO Q4H PRN PRN Reason: Pain, moderate (4-7) Pantoprazole Sodium (Protonix Ec Tab) 40 mg PO 0600 [facility] Last Admin: 10/27/17 05:31 Dose: 40 mg Trimethoprim/Sulfamethoxazole (Bactrim Ds Tab) 1 tab PO BID [facility] PRN Reason: Protocol Last Admin: 10/26/17 17:51 Dose: 1 tab - Constitutional Appears: No Acute Distress - Eye Exam Eye Exam: Normal appearance - ENT Exam ENT Exam: Mucous Membranes Moist - Respiratory Exam Respiratory Exam: Decreased Breath Sounds, Clear to Ausculation Bilateral, NORMAL BREATHING PATTERN - Cardiovascular Exam Cardiovascular Exam: +S1, +S2 - GI/Abdominal Exam GI & Abdominal Exam: Soft, Normal Bowel Sounds - Extremities Exam Extremities Exam: Normal Capillary Refill - Neurological Exam Neurological Exam: Alert, Awake - Psychiatric Exam Psychiatric exam: Normal Affect - Skin Skin Exam: Dry, Warm Assessment and Plan - Assessment and Plan (Free Text) Assessment: Followed up in TCU for continuity of care. A 77 year old male who came in to the ER due to weakness and unsteady gait. He claimed that his legs gave up and fell. denies loss of consciousness. History of lung cancer on chemotherapy ( last treatment 10/20/17) CVA,left shoulder replacement,hypertension.Rule out orthostatic hypotension, Unsteady gait due to bilateral enhancing metastatic cerebellar lesions (MRI of brain 10/21/17). Radiation oncology consulted. MUGA scan done- Normal wall motion, LVEF 73 %, Normal RV. Transferred to TCU for reconditioning Plan: Cardiac status stable Stable heart rate and blood pressure Wanted to go home,verbalized does not want physical therapy He was suppose to go home yesterday but was convinced to stay for physical therapy. reassured and explained benefits of physical therapy Continue current treatment Continue current medications Fall precaution Will follow up Plan and treatment discussed with Dr. Rangel
--- NOTE | 2017-10-27 09:56 | PN ---
DATE: 10/27/2017 A 77-year-old white male seen in [facility]. The patient has a history of a Pancoast tumor of the left upper lung with cerebellar metastasis. He is receiving radiation therapy by Dr. Jain. He is doing physical therapy and occupational therapy to avoid falls. He will follow up with Dr. Frederick for his oncological treatment and plan is to continue radiation therapy and physical therapy. Zafar Blackwell MD
[2017-10-27] MEDS: Tmp-Smz 800 mg-160 mg DS Tab PO SCH (10:02)
[2017-10-27] MEDS: Lidocaine 5% Patch TD SCH (10:04)
[2017-10-28] MEDS: Pantoprazole 40 mg EC Tab PO SCH (05:37)
--- NOTE | 2017-10-28 06:52 | CP.PCM.PN ---
Subjective - Date & Time of Evaluation Date of Evaluation: 10/28/17 Time of Evaluation: 06:45 - Subjective Subjective: No distress, lying in bed, awake Reason for consultation and follow up: Continuity of care in TCU,cardiac evaluation of possible syncopal episode, History of gait imbalance,fall, hypertension.Rule out orthostatic hypotension. Metastatic cancer to brain. Seen and examined by me and Dr. Rangel Objective - Vital Signs/Intake and Output Vital Signs (last 24 hours): Temp Pulse Resp BP Pulse Ox 98.9 F 65 18 122/54 L 96 10/27/17 16:00 10/27/17 16:00 10/27/17 16:00 10/27/17 16:00 10/27/17 16:00 - Medications Medications: Current Medications Amitriptyline HCl (Elavil) 25 mg PO HS [facility] Last Admin: 10/27/17 21:24 Dose: 25 mg Amlodipine Besylate (Norvasc) 5 mg PO DAILY [facility] Last Admin: 10/27/17 10:04 Dose: Not Given Dexamethasone (Decadron) 4 mg PO BID [facility] Last Admin: 10/27/17 17:29 Dose: 4 mg Lidocaine (Lidoderm) 1 ea TD DAILY [facility] Last Admin: 10/27/17 10:04 Dose: Not Given Losartan Potassium (Cozaar) 100 mg PO DAILY [facility] Last Admin: 10/27/17 10:03 Dose: Not Given Oxycodone HCl (Oxycodone Immediate Release Tab) 10 mg PO Q4H PRN PRN Reason: Pain, moderate (4-7) Pantoprazole Sodium (Protonix Ec Tab) 40 mg PO 0600 [facility] Last Admin: 10/28/17 05:37 Dose: 40 mg - Constitutional Appears: No Acute Distress - Head Exam Head Exam: NORMOCEPHALIC - Eye Exam Eye Exam: Normal appearance - ENT Exam ENT Exam: Mucous Membranes Moist - Respiratory Exam Respiratory Exam: Clear to Ausculation Bilateral, NORMAL BREATHING PATTERN - Cardiovascular Exam Cardiovascular Exam: +S1, +S2 - GI/Abdominal Exam GI & Abdominal Exam: Soft, Normal Bowel Sounds - Extremities Exam Extremities Exam: Full ROM, Normal Capillary Refill - Neurological Exam Neurological Exam: Alert, Awake, Oriented x3 - Psychiatric Exam Psychiatric exam: Normal Affect - Skin Skin Exam: Intact, Warm Assessment and Plan - Assessment and Plan (Free Text) Assessment: Followed up in TCU for continuity of care. A 77 year old male who came in to the ER due to weakness and unsteady gait. He claimed that his legs gave up and fell. denies loss of consciousness. History of lung cancer on chemotherapy ( last treatment 10/20/17) CVA,left shoulder replacement,hypertension.Rule out orthostatic hypotension, Unsteady gait due to bilateral enhancing metastatic cerebellar lesions (MRI of brain 10/21/17). Radiation oncology consulted. MUGA scan done- Normal wall motion, LVEF 73 %, Normal RV. Transferred to TCU for reconditioning Physical therapy in progress Plan: No distress Physical therapy in progress Cooperative with physical therapy Cardiac status stable Stable heart rate and blood pressure Continue current treatment Continue current medications Fall precaution Will follow up Plan and treatment discussed with Dr. Rangel
[2017-10-28] MEDS: Lidocaine 5% Patch TD SCH (11:09)
--- NOTE | 2017-10-29 02:01 | PN ---
DATE: 10/28/2017 FOLLOWUP NOTE SUBJECTIVE: He is comfortable in bed, in no acute distress. Gait improved, currently participating in physical therapy. He had stage IV lung cancer with brain mets, currently undergoing radiation to the brain. PHYSICAL EXAMINATION: GENERAL: Comfortable in bed, in no acute distress. VITAL SIGNS: Temperature 98.7, heart rate 80 per minute, respiratory rate 15 per minute. HEENT: Pallor positive. NECK: No lymphadenopathy. CHEST: Air entry present and equal, bilateral. No added sound. CARDIOVASCULAR: S1, S2 normal. No murmur. No gallop. ABDOMEN: Soft, nontender. No hepatosplenomegaly. EXTREMITY: No edema. CENTRAL NERVOUS SYSTEM: Alert and oriented x3. No focal sensorimotor deficit. MEDICATIONS: Reviewed. LABORATORY DATA: Reviewed. ASSESSMENT AND PLAN: Lung cancer stage IV with brain metastasis in cerebellar region. Continue radiation to the brain. Discharge planning, he will be discharged on Thursday. He will have remaining few sessions of radiation following week. Gait improved with physical therapy. Appetite good. No pain issues. Blood counts within normal limits. Thank you Dr. Blackwell for allowing us to participate in Mr. Galicia's care. Keisha Frederick MD
[2017-10-29] MEDS: Pantoprazole 40 mg EC Tab PO SCH (05:22)
[2017-10-29] MEDS: Lidocaine 5% Patch TD SCH (09:59)
--- NOTE | 2017-10-29 13:51 | PN ---
DATE: 10/29/2017 LOCATION: The patient in room 327, bed 1. 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 SUBJECTIVE: The patient is lying flat in bed without any chest pain, shortness of breath, palpitation. The patient on admission also had chest pain, but that was atypical chest pain. The patient is asymptomatic from that point of view also. PHYSICAL EXAMINATION: VITAL SIGNS: Blood pressure 134/63, respirations 16, pulse 68, temperature 98.9. HEENT: Head is normocephalic. Eyes: Pupils normal. Conjunctivae slightly pale. NECK: JVP low. Carotids equal. THORAX: AP diameter normal. LUNGS: Clear. CARDIOVASCULAR: S1 and S2. ABDOMEN: Soft. No tenderness. No organomegaly. Bowel sound normal. EXTREMITIES: No clubbing. No cyanosis. LABORATORY DATA: The patient has lab on medical floor. On 10/22/2017, his WBC was 10.9, hemoglobin 9.7, hematocrit 28.2, platelet 219. Again, on 10/22/2017, chemistry showed sodium 139, potassium 4.9, BUN 23, creatinine 1, random sugar of 178, calcium 9.7. DIAGNOSES: Unsteady gait due to metastatic tumor to the brain from Pancoast tumor of the lung, hypertension. Initially, the patient had a chest pain on admission, which was atypical. The patient now is chest pain free. MUG scan showed left ventricular ejection fraction 73%, which is normal. PLAN: The patient clinically does not have any chest pain. Initial chest pain was atypical pain. The patient's MUGA scan showed LV ejection fraction, so from cardiac point of view, the patient clinically is stable and Radiation and Oncology is following the patient. The patient is also getting physical therapy for deconditioning. Blood pressure is also stable. We will continue present therapy of losartan 100 mg daily, dexamethasone 400 mg p.o. b.i.d., Elavil 25 mg p.o. at bedtime, amlodipine 5 mg daily, Protonix 40 mg p.o. daily. We will follow with you. Timothy Rosales MD
--- NOTE | 2017-10-29 23:41 | CP.PCM.PN ---
Subjective - Date & Time of Evaluation Date of Evaluation: 10/29/17 Time of Evaluation: 08:00 - Subjective Subjective: Comfortable on bed. Undergoing radiation for brain mets. gait improved. No complaints. Objective - Vital Signs/Intake and Output Vital Signs (last 24 hours): Temp Pulse Resp BP Pulse Ox 98.1 F 63 14 112/49 L 97 10/29/17 16:00 10/29/17 16:00 10/29/17 16:00 10/29/17 16:00 10/29/17 16:00 - Medications Medications: Current Medications Amitriptyline HCl (Elavil) 25 mg PO HS [facility] Last Admin: 10/29/17 21:11 Dose: 25 mg Amlodipine Besylate (Norvasc) 5 mg PO DAILY [facility] Last Admin: 10/29/17 09:59 Dose: 5 mg Dexamethasone (Decadron) 4 mg PO BID [facility] Last Admin: 10/29/17 17:18 Dose: 4 mg Lidocaine (Lidoderm) 1 ea TD DAILY [facility] Last Admin: 10/29/17 09:59 Dose: 1 ea Losartan Potassium (Cozaar) 100 mg PO DAILY [facility] Last Admin: 10/29/17 09:59 Dose: 100 mg Pantoprazole Sodium (Protonix Ec Tab) 40 mg PO 0600 [facility] Last Admin: 10/29/17 05:22 Dose: 40 mg - Constitutional Appears: Well, Non-toxic - Head Exam Head Exam: NORMAL INSPECTION, NORMOCEPHALIC - Eye Exam Eye Exam: Normal appearance - ENT Exam ENT Exam: Mucous Membranes Moist, Normal Exam - Neck Exam Neck Exam: Normal Inspection - Respiratory Exam Respiratory Exam: Clear to Ausculation Bilateral, NORMAL BREATHING PATTERN - Cardiovascular Exam Cardiovascular Exam: REGULAR RHYTHM, +S1, +S2 - GI/Abdominal Exam GI & Abdominal Exam: Soft, Normal Bowel Sounds - Extremities Exam Extremities Exam: Normal Inspection - Back Exam Back Exam: NORMAL INSPECTION - Neurological Exam Neurological Exam: Alert, Awake, Normal Gait, Oriented x3 - Skin Skin Exam: Normal Color, Warm Assessment and Plan - Assessment and Plan (Free Text) Assessment: 1. stage IV lung cancer . new brain mets. undergoing XRT to brain. 2. Ataxia improved. 3. pain left shoulder improved. 4. Continue PT.
[2017-10-30] MEDS: Pantoprazole 40 mg EC Tab PO SCH (05:53)
[2017-10-30] MEDS: Lidocaine 5% Patch TD SCH (09:20)
[2017-10-30 10:45] LABS: ALB/GLOB RATIO 1.2 (1.1-1.8); ALBUMIN 3.5 g/dL (3.0-4.8); ALT/SGPT 35 U/L (7-56); AST/SGOT 23 U/L (17-59); BLOOD UREA NITROGEN 32 mg/dL (7-21); GFR NON-AFRICAN AMERICAN > 60
[2017-10-30 11:52] LABS: MEAN CELL VOLUME 99.3 fl (80.0-105.0); MEAN CORPUSCULAR HGB CONC 35.2 g/dl (31.0-37.0); MEAN PLATELET VOLUME 12.1 fl (7.0-11.0); RBC 2.86 10^6/uL (3.5-6.1); RED CELL DISTRIBUTION WIDTH 14.4 % (11.5-14.5); WHITE BLOOD COUNT 6.5 10^3/ul (4.5-11.0)
[2017-10-31] MEDS: Pantoprazole 40 mg EC Tab PO SCH (06:21)
[2017-10-31] MEDS: Lidocaine 5% Patch TD SCH (09:58)
[2017-11-01] MEDS: Pantoprazole 40 mg EC Tab PO SCH (05:18)
[2017-11-01] MEDS: Lidocaine 5% Patch TD SCH (09:45)
--- NOTE | 2017-11-01 20:53 | CP.PCM.PN ---
Subjective - Date & Time of Evaluation Date of Evaluation: 10/31/17 Time of Evaluation: 09:00 - Subjective Subjective: Subjective: Comfortable on bed. Undergoing radiation for brain mets. gait improved. No complaints. participating in PT. Objective - Vital Signs/Intake and Output Vital Signs (last 24 hours): Temp Pulse Resp BP Pulse Ox 98.1 F 63 14 112/49 L 97 10/29/17 16:00 10/29/17 16:00 10/29/17 16:00 10/29/17 16:00 10/29/17 16:00 - Medications Medications: Current Medications Amitriptyline HCl (Elavil) 25 mg PO HS [facility] [place] Last Admin: 10/29/17 21:11 Dose: 25 mg Amlodipine Besylate (Norvasc) 5 mg PO DAILY [facility] Last Admin: 10/29/17 09:59 Dose: 5 mg Dexamethasone (Decadron) 4 mg PO BID [facility] [place] Last Admin: 10/29/17 17:18 Dose: 4 mg Lidocaine (Lidoderm) 1 ea TD DAILY [facility] Last Admin: 10/29/17 09:59 Dose: 1 ea Losartan Potassium (Cozaar) 100 mg PO DAILY [facility] [place] Last Admin: 10/29/17 09:59 Dose: 100 mg Pantoprazole Sodium (Protonix Ec Tab) 40 mg PO 0600 [facility] [place] Last Admin: 10/29/17 05:22 Dose: 40 mg - Constitutional Appears: Well, Non-toxic - Head Exam Head Exam: NORMAL INSPECTION, NORMOCEPHALIC - Eye Exam Eye Exam: Normal appearance - ENT Exam ENT Exam: Mucous Membranes Moist, Normal Exam - Neck Exam Neck Exam: Normal Inspection - Respiratory Exam Respiratory Exam: Clear to Ausculation Bilateral, NORMAL BREATHING PATTERN - Cardiovascular Exam Cardiovascular Exam: REGULAR RHYTHM, +S1, +S2 - GI/Abdominal Exam GI & Abdominal Exam: Soft, Normal Bowel Sounds - Extremities Exam Extremities Exam: Normal Inspection - Back Exam Back Exam: NORMAL INSPECTION - Neurological Exam Neurological Exam: Alert, Awake, Normal Gait, Oriented x3 - Skin Skin Exam: Normal Color, Warm Assessment and Plan - Assessment and Plan (Free Text) Assessment: 1. stage IV lung cancer . new brain mets. undergoing XRT to brain. he will be completing next thu. 2. Ataxia improved. 3. pain left shoulder improved. refused lidoderm patch. 4. Continue PT. Objective - Vital Signs/Intake and Output Vital Signs (last 24 hours): Temp Pulse Resp BP Pulse Ox 98.1 F 64 14 115/51 L 100 11/01/17 16:00 11/01/17 16:00 11/01/17 16:00 11/01/17 16:00 11/01/17 16:00 - Medications Medications: Current Medications Amitriptyline HCl (Elavil) 25 mg PO HS [facility] Last Admin: 10/31/17 21:31 Dose: 25 mg Amlodipine Besylate (Norvasc) 5 mg PO DAILY [facility] Last Admin: 11/01/17 09:45 Dose: 5 mg Dexamethasone (Decadron) 2 mg PO BID [facility] [place] Last Admin: 11/01/17 17:35 Dose: 2 mg Lidocaine (Lidoderm) 1 ea TD DAILY [facility] Last Admin: 11/01/17 09:45 Dose: Not Given Losartan Potassium (Cozaar) 100 mg PO DAILY [facility] [place] Last Admin: 11/01/17 09:44 Dose: 100 mg Pantoprazole Sodium (Protonix Ec Tab) 40 mg PO 0600 [facility] [place] Last Admin: 11/01/17 05:18 Dose: 40 mg - Labs Labs: 10/30/17 10:15 10/30/17 10:15
--- NOTE | 2017-11-01 22:17 | PN ---
DATE: 11/01/2017 FOLLOWUP NOTE SUBJECTIVE: He is comfortable in bed, in no acute distress. Participating in physical therapy. Gait improved. He is currently on Decadron 4 mg b.i.d., getting radiation to the brain, 3 more radiation treatments are left. No shortness of breath. No chest pain. REVIEW OF SYSTEMS: As per HPI. Rest of 12-point review of systems reviewed and negative. PHYSICAL EXAMINATION: GENERAL: Comfortable in bed, in no acute distress. VITAL SIGNS: Temperature 98.1, heart rate 64, blood pressure 140/51, respiratory rate 14 per minute. Oxygen saturation 100% on room air. HEENT: Pallor positive. NECK: No lymphadenopathy. CHEST: Air entry present and equal, bilateral. No added sound. CARDIOVASCULAR: S1, S2 normal. No murmur. No gallop. ABDOMEN: Soft, nontender. No hepatosplenomegaly. EXTREMITY: No edema. CENTRAL NERVOUS SYSTEM: Alert and oriented x3. No focal sensorimotor deficit. Ataxia improved. MEDICATIONS: Amitriptyline 25 mg p.o. at bedtime, Norvasc 5 mg daily, Decadron 2 mg p.o. b.i.d., Lidoderm patch to local application, Cozaar 100 mg daily, Protonix 40 mg daily. LABORATORY DATA: White count 6.5, hemoglobin 10, hematocrit 28, platelet count 52,000. Sodium 134, potassium 4.6, BUN 32, creatinine 0.9. Bilirubin 0.7. ASSESSMENT AND PLAN: Stage IV lung cancer, new brain metastasis, underwent radiation to the brain. Ataxia improved. He is currently on steroid, 4 mg Decadron p.o. b.i.d. I will decrease it to 2 mg p.o. b.i.d. Continue Protonix 40 mg daily, Elavil 25 mg p.o. at bedtime, Norvasc 5 mg daily. CBC showed thrombocytopenia, likely related to recent chemotherapy. BUN and creatinine are normal. LFTs are within normal limits. Plan is for starting immunotherapy in a few weeks after of completion of the radiation, tumor is PDL-1 positive -80%. . Discussed with the and the daughter. They want to keep him until Thursday when his last treatment will be. Discussed with the TCU staff, they agreed with the plan. His last dose of radiation will be on Thursday. He can be discharged then. Thank you Dr. Blackwell for allowing us to participate in Mr. Galicia's care. Keisha Frederick MD HELEN
[2017-11-02] MEDS: Pantoprazole 40 mg EC Tab PO SCH (06:15)
--- NOTE | 2017-11-02 10:39 | PN ---
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 The patient also had multiple falls, history of Pancoast tumor. The patient is doing well with physical therapy and occupational therapy. Physical examination is unremarkable. PLAN: To continue physical therapy. Finish radiation before being discharged home. Zafar Blackwell MD
[2017-11-02] MEDS: Nystatin 100,000 Units/ml Oral Susp 5 ml UD PO SCH ×4 (10:41→21:36)
[2017-11-02] MEDS: Lidocaine 5% Patch TD SCH (10:41)
--- NOTE | 2017-11-02 23:22 | CP.PCM.PN ---
Subjective - Date & Time of Evaluation Date of Evaluation: 11/02/17 Time of Evaluation: 18:00 - Subjective Subjective: No complaints. participating in PT. Pain left shoulder resolved. Undergoing XRT to brain , will complete on Thu. Objective - Vital Signs/Intake and Output Vital Signs (last 24 hours): Temp Pulse Resp BP Pulse Ox 98.6 F 80 14 115/61 100 11/02/17 10:00 11/02/17 10:40 11/02/17 10:00 11/02/17 10:40 11/02/17 10:00 - Medications Medications: Current Medications Amitriptyline HCl (Elavil) 25 mg PO HS [facility] Last Admin: 11/02/17 21:36 Dose: Not Given Amlodipine Besylate (Norvasc) 5 mg PO DAILY [facility] Last Admin: 11/02/17 10:40 Dose: 5 mg Dexamethasone (Decadron) 2 mg PO BID [facility] Last Admin: 11/02/17 17:32 Dose: 2 mg Lidocaine (Lidoderm) 1 ea TD DAILY [facility] Last Admin: 11/02/17 10:41 Dose: Not Given Losartan Potassium (Cozaar) 100 mg PO DAILY [facility] Last Admin: 11/02/17 10:41 Dose: 100 mg Nystatin (Nystatin Oral Susp) 5 ml PO QID [facility] Stop: 11/11/17 10:00 Last Admin: 11/02/17 21:36 Dose: Not Given Pantoprazole Sodium (Protonix Ec Tab) 40 mg PO 0600 [facility] Last Admin: 11/02/17 06:15 Dose: 40 mg - Labs Labs: 10/30/17 10:15 10/30/17 10:15 - Constitutional Appears: Well, Non-toxic - Head Exam Head Exam: ATRAUMATIC, NORMAL INSPECTION, NORMOCEPHALIC - Eye Exam Eye Exam: Normal appearance - ENT Exam ENT Exam: Mucous Membranes Moist - Neck Exam Neck Exam: Normal Inspection - Respiratory Exam Respiratory Exam: Clear to Ausculation Bilateral - GI/Abdominal Exam GI & Abdominal Exam: Soft, Normal Bowel Sounds - Extremities Exam Extremities Exam: Normal Inspection - Back Exam Back Exam: NORMAL INSPECTION - Neurological Exam Neurological Exam: Alert, Awake, Oriented x3 - Psychiatric Exam Psychiatric exam: Normal Affect - Skin Skin Exam: Normal Color, Warm Assessment and Plan - Assessment and Plan (Free Text) Assessment: 1. Stage IV lung cancer : new brain mets- ongoing XRT to brain. Immunotherapy post radiation- Keytruda. 2. Thrombocytopenia : likely related to chemo. 3. Renal : normal renal functions. 3. No pain issues. 4. Gait improved. Thank you Dr. Blackwell for allowing us to participate in his care.
[2017-11-03] MEDS: Pantoprazole 40 mg EC Tab PO SCH (06:21)
--- NOTE | 2017-11-03 09:20 | PN ---
DATE: 11/03/2017 This is a 77-year-old white male with Pancoast tumor of left lung with cerebellar metastases, getting radiation therapy. The patient has refused to . He has still had some balance problems. He has been in TCU, doing physical therapy, occupational therapy and radiation therapy to his brain. The plan is to continue radiation therapy. Physical examination is unchanged. Encourage eating and drinking habits. Continue physical therapy and complete his radiation therapy in the morning. Zafar Blackwell MD
[2017-11-03] MEDS: Nystatin 100,000 Units/ml Oral Susp 5 ml UD PO SCH ×3 (14:06→21:37)
[2017-11-03 16:19] VITALS: RESP 16; TEMP 97.8; O2SAT 96
[2017-11-04] MEDS: Pantoprazole 40 mg EC Tab PO SCH (06:15)
[2017-11-04] MEDS: Lidocaine 5% Patch TD SCH (10:20)
[2017-11-04] MEDS: Nystatin 100,000 Units/ml Oral Susp 5 ml UD PO SCH (10:21)
[2017-11-04 10:25] VITALS: BP 108/59; PULSE 79
[2017-11-04] MEDS ORDERED: Pneumococcal 23-Valent Vaccine IM ONE (11:59)
--- NOTE | 2017-11-04 13:21 | DS ---
The patient is a 77-year-old white male with history of metastatic carcinoma, Pancoast tumor of the left upper lung with cerebellar metastasis. The patient is having a course of radiation therapy to the brain. He also has history of chemotherapy by Dr. Frederick and radiation therapy to his tumor. The patient is doing well; however, he is refusing to take the medication, refusing to eat. After he finishes his radiation therapy, he will be discharged home today, to follow with Dr. Frederick as an outpatient. The patient is stable. His vital signs are stable. We have encouraged them to aliment. His blood pressure is 110/40, temperature 97.8. Laboratory data are unremarkable and vital signs are stable. Chest is clear to auscultation and percussion. Heart examination revealed sinus rhythm. The patient saw he will need a walker and close monitoring at home to avoid falls. He will be discharged home to the family. He lives with his and some of his children. The plan will be to follow up with Dr. Frederick as an outpatient and a follow up MRI after his radiation is completed. DISCHARGE DIAGNOSES: Multiple falls, cerebellar metastases, Pancoast tumor of the left lung. Zafar Blackwell MD
== END 2017-11-04 13:33 | disposition home health service (06) | DRG 54 ==
LOC: TRCU 15:19
PROVIDERS: ADMIT Internal Medicine; ATTEND Internal Medicine
PROC: F07Z9ZZ Gait Training/Functional Ambulation Treatment (ICD-10-PCS; principal; 2017-10-25)
PROC: F08Z4ZZ Home Management Treatment (ICD-10-PCS; 2017-10-25)
PROC: D0001ZZ Beam Radiation of Brain using Photons 1 - 10 MeV (ICD-10-PCS; 2017-10-26)
DX: C79.31 Secondary malignant neoplasm of brain (principal); R27.0 Ataxia, unspecified; G93.6 Cerebral edema; C34.12 Malignant neoplasm of upper lobe, left bronchus or lung; J44.9 Chronic obstructive pulmonary disease, unspecified; I10 Essential (primary) hypertension; M25.512 Pain in left shoulder; D69.59 Other secondary thrombocytopenia; T45.1X5A Adverse effect of antineoplastic and immunosuppressive drugs, initial encounter; R29.6 Repeated falls; Z86.73 Personal history of transient ischemic attack (TIA), and cerebral infarction without residual deficits

== ENCOUNTER 2018-02-18 09:36 | Outpatient (CLI) | payer MEDICARE, OTHER | END 2018-02-18 09:37 | disposition home or self-care (01) | LOC: RAD 09:36 | DX: C34.90 Malignant neoplasm of unspecified part of unspecified bronchus or lung (principal) ==